=== PATIENT | male | born 1945 | race Caucasian/White ===

== ENCOUNTER 2017-11-17 17:29 | Emergency (ER) | payer MEDICARE ==
--- NOTE | 2017-11-17 18:05 | RAD ---
CHEST ONE VIEW: 11/17/17 HISTORY: 72-year-old male with cough and congestion for one week. Increased bronchovascular markings are noted bilaterally. Heart size is within normal limits. No conf luent pneumonia, overt edema or pleural effusion. IMPRESSION: Nonspecific increased bronchovascular markings in the hilar regions bilaterally. Atherosclerosis of t he aorta with ectasia. Old granulomatous disease. No evidence for confluent pneumonia or other acute process. POS: [facility]
== END 2017-11-17 18:35 | disposition home or self-care (01) ==
LOC: ERS 17:29
DX: J11.1 Influenza due to unidentified influenza virus with other respiratory manifestations (principal); Z79.899 Other long term (current) drug therapy
CPT/HCPCS: 71010

== ENCOUNTER 2017-11-26 07:29 | Inpatient (IN) | payer MEDICARE ==
[2017-11-26] MEDS ORDERED: methylPREDNISolone Sod Succ/PF 125 MG/2 ML VIAL ONE (07:51)
[2017-11-26] MEDS ORDERED: Water For Inject, Bacteriostat 30 ML ONE (07:51)
[2017-11-26 07:59] LABS: #Eosinphils 0.1 thou/uL (0.0-0.7); #Lymphocytes 2.2 thou/uL (1.20-3.40); #Monocytes 0.8 thou/uL (0.11-0.59); #Neutrophils 10.6 thou/uL (1.40-6.50); %Eosinophils 0.5 % (0.0-10.0); %Lymphocytes 15.8 % (21.0-51.0); %Monocytes 5.8 % (0.0-10.0); %Neutrophils 77.8 % (42.0-75.0); Hemoglobin 15.4 g/dL (14.0-18.0); Mean Corpuscular HGB CONC 34.4 g/dL (32.0-36.0); Mean Corpuscular Hemoglobin 30.7 pg (27.0-31.0); Mean Corpuscular Volume 89.3 fl (80.0-94.0); Mean Platelet Volume 6.9 fL (7.4-10.4); Platelet Count 229 thou/uL (130-400); Red Blood Cell (RBC) Count 5.02 mill/uL (4.70-6.10); White Blood Cell (WBC) Count 13.6 thou/uL (4.8-10.8)
[2017-11-26 08:07] LABS: D-Dimer Test 1.73 *mcg/mL (0.27-0.43)
[2017-11-26 08:23] LABS: ALT (SGPT) 12 U/L (8-55); AST (SGOT) 12 U/L (5-34); Albumin 4.2 g/dL (3.4-4.8); Alkaline Phosphatase 76 U/L (40-150); Anion Gap 13 mmol/L (10-20); BUN (Urea Nitrogen) 17 mg/dL (8.4-25.7); Bilirubin, Total 2.3 mg/dL (0.2-1.2); CK (CPK) 39 U/L (30-200); Calc. Creatinine Clearance 0 mL/min (70-130); Calcium 9.8 mg/dL (7.8-10.44); Carbon Dioxide 27 mmol/L (23-31); Chloride 95 mmol/L (98-107); Estimated GFR-MDRD 50; Globulin 3.4 g/dL (2.4-3.5); Glucose 174 mg/dL (83-110); Potassium 4.3 mmol/L (3.5-5.1); Protein, Total 7.6 g/dL (5.8-8.1); Sodium 131 mmol/L (136-145)
[2017-11-26 08:28] LABS: CKMB 0.5 ng/mL (0-6.6); Troponin I Less than 0.010 ng/mL (< 0.028)
--- NOTE | 2017-11-26 08:41 | RAD ---
RADIOGRAPH CHEST 1 VIEW: Date: 11/26/17. Time: 7:48 a.m. HISTORY: A 72-year-old male with dyspnea. COMPARISON: 11/17/17. FINDINGS: There is a new finding of airspace density at the medial aspect of the base of the right lower lobe. This is favored to represent atelectasis, and somewhat less likely to be pneumonia, although that re richa a possibility. Elsewhere, no other airspace density is visualized. Ectasia of thoracic aorta. Cardiac size at the upper limits of normal. No pulmonary edema or pneumothorax. Lateral costophre noe angles are sharp. IMPRESSION: 1. New small airspace density at the medial, infrahilar base of the right lower lobe: atelectasis ve rsus pneumonia. 2. Recommend short interval followup with PA and lateral views. HARSHA [] POS: [facility]
[2017-11-26 09:31] LABS: INR-International Normal Ratio 1.1; Prothrombin Time 14.3 SEC (12.0-14.7)
[2017-11-26] MEDS ORDERED: Enoxaparin Sodium 100 MG/ML SYRINGE ONE (09:57)
--- NOTE | 2017-11-26 10:07 | CT ---
CTA THORAX WITH CONTRAST: (Computed Tomographic Angiography, chest(noncoronary) with contrast material, and image postprocessin g) (PE protocol) DATE: 11/26/17. TIME: 8:56 a.m. TECHNIQUE: Isovue. HISTORY: A 72-year-old male with cough, dyspnea, right-sided chest pain, and elevated D-dimer. Dr. Ceron reported the positive finding of pulmonary embolism to Dr. Ying at 9:14 a.m. on 11/26/17. TECHNIQUE: IV injection of iodinated contrast. Scan acquisition timing attempted to coincide with iodinated contrast bolus reaching maximal density in pulmonary arteries. 3D MIP reconstructions. FINDINGS: There is clot filling and expanding the lumen of posterobasilar segment right lower lobe pulmonary ar jennifer branches and medial basilar segment right lower lobe pulmonary artery branches. There is also c lot in the posterior segment right upper lobe pulmonary artery branch. There is no clot identified i n the left pulmonary artery branches, bilateral main left and right pulmonary arteries, or the pulmon ic trunk. There is mild ectasia and tortuosity, but no aneurysm or dissection, of the thoracic aorta . Calcification or stent is present within the LAD. Borderline cardiomegaly. There are ground-glass densities at the posterobasilar portion of the right lower lobe, which could r epresent pulmonary ischemia or early infarction. There is adjacent rind of subsegmental atelectasis abutting the right posterior pleural surface. Little or no right pleural effusion. No left pleural effusion. No pulmonary edema. No mediastinal or hilar lymphadenopathy. There is a calcified gallst one. Low hepatic attenuation. IMPRESSION: 1. Positive for right-sided pulmonary thromboembolism. 2. Posterobasilar right lower lobe pulmonary ischemia or infarction. 3. Coronary atherosclerotic disease. 4. Cholelithiasis. CODE CR jn[] POS: [facility]
[2017-11-26] MEDS ORDERED: Azithromycin 500 MG in Sodium Chloride 0.9% 250 ML 250 ML IVPB SCH (10:15)
[2017-11-26] MEDS ORDERED: ISOVUE-370 76%-LOCM 1 ML ONE (11:16)
[2017-11-26] MEDS ORDERED: Acetaminophen 325 MG TAB PO PRN ×2 (14:45→17:13)
[2017-11-26] MEDS ORDERED: Ondansetron ODT 4 MG TAB SL PRN (14:45)
[2017-11-26] MEDS ORDERED: Ondansetron HCl/PF 4 MG/2 ML Vial IVP PRN ×2 (14:45→17:13)
[2017-11-26 16:33] VITALS: BMI 30.2
[2017-11-26] MEDS ORDERED: Ondansetron ODT 4 MG TAB PO PRN (17:13)
[2017-11-26] MEDS ORDERED: Bisacodyl 5 MG TAB PO PRN (17:13)
[2017-11-26] MEDS ORDERED: Guaifenesin DM 100-10/5 ML UDCUP PO PRN (17:13)
[2017-11-26] MEDS ORDERED: Acetaminophen 650 MG Suppository PR PRN (17:13)
[2017-11-26] MEDS ORDERED: cefTRIAXone\\ROCEPHIN 1 GM in Sodium Chloride 0.9% 100 ML IVPB SCH (17:15)
[2017-11-26] MEDS: Sodium Chloride 0.9% 1,000 ML IV SCH (18:08)
--- NOTE | 2017-11-26 19:17 | HP ---
PRIMARY CARE PHYSICIAN: None. CHIEF COMPLAINT: Cough and chest pain. HISTORY OF PRESENT ILLNESS: This is a 72-year-old white male without significant past medical histor y who about 3 weeks ago developed low grade fevers never above 100, significant runny nose, sore thro at, some chills, cough and congestion. He and his were both seen in Urgent Care and diagnosed w ith most likely influenza. He was given a course of azithromycin and also a total course of Tamiflu. The patient states that the congestion, drainage, sore throat and fevers all resolved, but he had s ome persistent cough and then for the last few days, the cough has been getting worse and starting ye , he developed significant right-sided chest and abdominal pain with whenever he would try and cough so much so that at one point he could not take a deep breath or cough at all because the pain was so severe. Because of the severity of the pain and trouble breathing, he came into the emergency room. In the emergency room, he was found to have an infiltrate in his right lower lobe concerning for atelectasis versus pneumonia. He had an elevated D-dimer, so a CT angiogram was done and this sh owed a right-sided pulmonary embolism along with some ground glass densities in the posterior basilar portion of the right lower lobe concerning for ischemia or infarction. He was also noted to have so me calcifications of the coronary artery disease, specifically in the LAD and some borderline cardiom egaly as well as some cholelithiasis. The patient was given Lovenox along with Rocephin and azithrom ycin in the emergency room and was admitted to the hospital. PAST MEDICAL HISTORY: None. PAST SURGICAL HISTORY: 1. Left knee cartilage repair. 2. Appendectomy. SOCIAL HISTORY: Patient drinks a glass of red wine occasionally. 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 No illicit d rug use. He is and lives with his . FAMILY HISTORY: Diabetes. ALLERGIES: No known drug allergies. MEDICATIONS: No regular medications. REVIEW OF SYSTEMS: Constitutional: See HPI. HEENT: He had some redness and drainage originally, t his has since resolved. No eye pain or blurred vision. ENT: See HPI. All symptoms resolved. Card iovascular: No anterior chest pain, no palpitations or racing heart. No lower extremity edema. Pul monary: See HPI. The cough is productive of clear sputum. Gastrointestinal: No abdominal pain, no nausea or vomiting, no diarrhea or constipation. Genitourinary: No dysuria or hematuria. Musculos keletal: No significant muscle aches or joint pains. Skin: No rashes or other lesions. Neurologic : No numbness, tingling or focal weakness. PHYSICAL EXAMINATION: VITAL SIGNS: Blood pressure 139/85, pulse 71, respirations 16, O2 sat 95% on room air, temperature 9 8.2. GENERAL: This is a well-developed, obese white male in no apparent distress. HEENT: Pupils equal, round, and reactive to light. Oropharynx clear without lesions, erythema or ex udate. NECK: Supple. No lymphadenopathy, no thyroid nodules or enlargement, no JVD. HEART: Regular rate and rhythm, no murmurs, rubs or gallops. LUNGS: Clear to auscultation bilaterally, no wheezes, crackles or rhonchi. No chest wall tenderness . ABDOMEN: Soft, nontender to palpation, normoactive bowel sounds, no hepatosplenomegaly or other mass es. EXTREMITIES: No clubbing, cyanosis or edema. He has no pain to palpation of the calves bilaterally. SKIN: No rashes or other lesions noted. NEUROLOGIC: Strength 5/5 in all 4 extremities. No facial droop. PSYCHIATRIC: Alert, oriented x3, normal mood and affect. LABORATORY DATA: CBC with white blood cell count 13.6 with a neutrophil predominance of 77.8, remain darlene is normal. Coagulation profile shows only an elevated D-dimer, PT and INR normal. Complete meta bolic panel notable for sodium a little low at 131, chloride of 95, creatinine of 1.38, glucose of 17 4 and total bilirubin mildly elevated at 2.3, rest of the liver functions are normal. Cardiac marker set negative x1. Brain natriuretic peptide is normal. Chest x-ray and CT results as per HPI. ASSESSMENT PLAN: 1. Right-sided pulmonary embolism with ischemia or infarction of the right posterior aspect of the i nferior lobe. The patient has received Lovenox in the emergency room. We will continue 1 mg per kg q.12 hours. We will also start him on Coumadin as he does not have any insurance to help pay for [employer]. We will consult Dr. Silva for assistance and management of this patient. 2. Questionable pneumonia. Patient has what appears to be more infarction on the CT scan. He does have a mildly elevated white blood cell count. He has already finished a course of azithromycin ana rosa ier in illness, so we will hold off on further azithromycin at this time, we will continue the Roceph in for now until Dr. Silva sees the patient. 3. Renal insufficiency, uncertain if this is acute or chronic. As we do not have any previous labs on him, we will give him gentle hydration and recheck in the morning. 4. Gastrointestinal prophylaxis. Put patient on Pepcid while he is in the hospital. 5. Deep venous thrombosis prophylaxis. Patient is being put on Lovenox. 6. Code status. I did discuss this with the patient. He is a FULL CODE. Should he be incapacitate d, his , Sascha Matthew, would be his medical decision maker.
[2017-11-26] MEDS: Docusate 100 MG CAP PO SCH (20:36)
[2017-11-26] MEDS: Enoxaparin Sodium 100 MG/ML SYRINGE SC SCH (20:37)
--- NOTE | 2017-11-26 20:49 | ULT ---
BILATERAL LOWER EXTREMITY DOPPLER VENOUS ULTRASOUND: Indication: History of PE. Concern for DVT. Technique: Linares scale, color Doppler, and vascular duplex with spectral analysis was performed of the deep venou s structures of both lower extremities. The common femoral vein, superficial femoral vein, popliteal vein, posterior tibial vein, proximal greater saphenous, and proximal profunda veins were assessed bi laterally. FINDINGS: Normal compression, flow, and augmentation seen within the deep venous structures of both lower extre mities. IMPRESSION: No evidence of DVT within both lower extremities. POS: [facility]
--- NOTE | 2017-11-27 00:47 | CON ---
DATE OF SERVICE: 11/26/2017 SERVICE: Pulmonary Medicine. REASON FOR CONSULTATION: Pulmonary embolism. HISTORY OF PRESENT ILLNESS: The patient is a 72-year-old white male. He follows at the OR, but they told him since he had no medical issues that he did not need to follow up with them anymore. As suc h, he only goes back to them on a p.r.n. basis. Either way, he was in his usual state of health unti l a week ago when he had an upper respiratory tract infection. He is recovering from this nicely whe n he started having onset of pleuritic chest discomfort, and some difficulty with breathing. He pres ented to the emergency department and after initial diagnostic evaluation revealed an elevated D-dime r, CT scan was prompted resulting in evidence for a pulmonary embolism. There is also some ground-gl ass changes in the right basilar lung region. There is a very miniscule infiltrate. They suggested that this could represent an infarction versus an actual infection. Since being in the hospital, he was put on some blood thinners. He had resolution in his previously noted symptoms. Essentially, he feels that now that we understand what is going on, he is fairly comfortable with this process. He previously stated that he did not have any insurance. It is true that he has Medicare without the nm dication supplement. That being said, most of these medications should be able to be filled through the OR system. He denies any current fevers, chills, nausea, or vomiting. He only has chest discomf ort with deep breath or cough. PAST MEDICAL HISTORY: None. PAST SURGICAL HISTORY: 1. Left knee arthroscopy. 2. Appendectomy. SOCIAL HISTORY: He drinks wine. 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 He denies any illicit drugs a nd is currently . He has no exposure to chemicals, dust, asbestos, or tuberculosis. FAMILY HISTORY: Noncontributory ALLERGIES: No known drug allergies. MEDICATIONS: Inpatient medications were reviewed. REVIEW OF SYSTEMS: General, head, ears, eyes, nose, throat, cardiovascular, respiratory, GI, , mus culoskeletal, neurologic and skin is negative except as mentioned in the HPI. PHYSICAL EXAMINATION: VITAL SIGNS: Afebrile, pulse 79, blood pressure 123/69, respirations 18, saturation 98% on room air. GENERAL: The patient is awake and alert, in no apparent distress. LUNGS: Excellent air entry with no prolonged expiratory phase. No wheezing, rhonchi, or crackles ar e appreciated. HEART: Normal rate and regular. ABDOMEN: Soft, nontender, nondistended. Bowel sounds are positive. MUSCULOSKELETAL: No cyanosis or clubbing. No pitting in the bilateral lower extremities. NEUROLOGIC: Grossly nonfocal. LABORATORY DATA: Sodium is 131. Creatinine is 1.38. Basic metabolic profile and liver function ang dies are otherwise unremarkable. BNP is negative. Troponin is negative x1. INR is 1.1. WBC is 13. 6. CBC is otherwise unremarkable. IMAGIN. Ultrasound of bilateral lower extremities demonstrates no evidence of a DVT. 2. CTA of the chest demonstrates some ground-glass changes in the right basilar region likely sugges ting some degree of atelectasis. There is a slightly more dense miniscule infiltrate. It is not kely ar whether or not this represents infarction versus infectious process. I favor the prior. Otherwis e, there is no significant pleural parenchymal abnormality appreciated. 3. Chest x-ray demonstrates small air space density in the medial infrahilar base of the right lung. ASSESSMENT: 1. Acute pulmonary embolism. 2. Recent upper respiratory tract infection. 3. Pulmonary infarct, small. PLAN: My suspicion is that this thing represents a pulmonary infarction. He already completed a cou rse of azithromycin in the outpatient setting. As such, I agree with not administrating this medicat ion. I will switch him over to p.o. Omnicef and he can complete a 5-day course of this antibiotic di rected at community-acquired pathogens. After discussing a direct oral anticoagulant versus Coumadin , the patient would appreciate us making an effort on getting him on a direct oral anticoagulant. I have asked him to [facility] to determine which medication is on formulary. I will put a Social Work consult in to see if they can help us with any prior authorization that may be necessary to get that medication filled through that system. I can certainly get him a starter kit if necessa ry of the Xarelto. I will continue to follow up for the time being, but if we are able to get him on a direct oral anticoagulant, he is stable for discharge from the hospital. This will need to be con tinued for a total duration of 6 months. I have talked with him briefly about the risks and benefits that go along with taking a blood thinner. He understands that this puts him at increased risk of b leeding. He also appreciates that if that bleed occurs inside of the brain, that we will have no way to reliably discontinue or reverse this medication.
[2017-11-27] MEDS: Sodium Chloride 0.9% 1,000 ML IV SCH ×2 (05:10→20:50)
[2017-11-27 05:48] LABS: #Lymphocytes 1.4 thou/uL (1.20-3.40); #Neutrophils 11.9 thou/uL (1.40-6.50); %Eosinophils 0.1 % (0.0-10.0); %Lymphocytes 9.9 % (21.0-51.0); %Monocytes 6.9 % (0.0-10.0); %Neutrophils 83.1 % (42.0-75.0); Hemoglobin 13.6 g/dL (14.0-18.0); Mean Corpuscular HGB CONC 33.9 g/dL (32.0-36.0); Mean Corpuscular Hemoglobin 30.2 pg (27.0-31.0); Mean Platelet Volume 7.3 fL (7.4-10.4); Platelet Count 208 thou/uL (130-400); RBC Distribution Width 11.9 % (11.5-14.5); Red Blood Cell (RBC) Count 4.49 mill/uL (4.70-6.10); White Blood Cell (WBC) Count 14.4 thou/uL (4.8-10.8)
[2017-11-27 05:54] LABS: INR-International Normal Ratio 1.2; Prothrombin Time 15.7 SEC (12.0-14.7)
[2017-11-27 06:07] LABS: Anion Gap 11 mmol/L (10-20); BUN (Urea Nitrogen) 18 mg/dL (8.4-25.7); Calc. Creatinine Clearance 81 mL/min (70-130); Calcium 9.5 mg/dL (7.8-10.44); Carbon Dioxide 24 mmol/L (23-31); Chloride 104 mmol/L (98-107); Estimated GFR-MDRD 65; Glucose 133 mg/dL (83-110); Potassium 4.2 mmol/L (3.5-5.1); Sodium 135 mmol/L (136-145)
[2017-11-27] MEDS ORDERED: FLU VACC TS2017-18 (>65YR) 0.5 ML SYRINGE IM ONE (09:00)
[2017-11-27] MEDS ORDERED: Enoxaparin Sodium 40 MG/0.4 ML SYRINGE SC SCH (09:00)
[2017-11-27] MEDS ORDERED: cefTRIAXone\\ROCEPHIN 1 GM, Syringe 0.4 ML in Sterile Water 9.6 ML SLOW IVP SCH (10:00)
--- NOTE | 2017-11-27 10:07 | PDOC.PN ---
- Subjective Encounter Start Date: 11/27/17 Encounter Start Time: 14:30 Subjective: Patient reports cough worse but chest pain much better. Breathing -: easily. No leg pain/swelling. - Objective Resuscitation Status: Resuscitation Status FULL:Full Resuscitation MAR Reviewed: Yes Vital Signs & Weight: Vital Signs (12 hours) Temp Pulse Resp BP Pulse Ox 11/27/17 07:15 98.8 F 60 16 130/73 96 11/27/17 04:00 98.4 F 74 18 121/70 96 11/27/17 00:14 98.6 F 81 16 119/78 95 Weight Weight 215 lb 4.8 oz I&O: 11/26/17 11/27/17 11/28/17 06:59 06:59 06:59 Intake Total 1444 Balance 1444 Result Diagrams: 11/27/17 05:26 11/27/17 05:26 Phys Exam - Physical Examination Constitutional: NAD HEENT: moist MMs Respiratory: no wheezing, no rales, no rhonchi, clear to auscultation bilateral Cardiovascular: RRR, no significant murmur Gastrointestinal: soft, positive bowel sounds Musculoskeletal: no edema Neurological: non-focal, moves all 4 limbs Psychiatric: normal affect, A&O x 3 Dx/Plan (1) Pulmonary embolism and infarction Code(s): I26.99 - OTHER PULMONARY EMBOLISM WITHOUT ACUTE COR PULMONALE Status : Acute (2) Pneumonia Code(s): J18.9 - PNEUMONIA, UNSPECIFIED ORGANISM Status: Acute Comment: possible, more likely infarct on x-ray, will change to oral Omnicef and complete 5 days of abx as per Dr. Silva's recommendations. - Plan cont current plan of care, continue antibiotics, DVT proph w/lovenox Trying to arrange [facility] to cover newer anticoagulant * . - Discharge Day Encounter end time: 15:00
[2017-11-27] MEDS: Docusate 100 MG CAP PO SCH ×2 (10:12→20:49)
[2017-11-27] MEDS: Enoxaparin Sodium 100 MG/ML SYRINGE SC SCH ×2 (10:12→20:49)
[2017-11-27] MEDS ORDERED: Warfarin Sodium 5 MG TAB PO SCH (17:00)
--- NOTE | 2017-11-27 20:25 | PRG ---
DATE OF SERVICE: 11/27/2017 SERVICE: Pulmonary Medicine. INTERVAL HISTORY: The patient is doing great from a respiratory standpoint. He denies any current f david, chills, nausea or vomiting. This morning, somebody told him that they would look into whether or not the [facility] would cover his medication. Ultimately that did not happen today. As such, the patie nathan still remains in the hospital. He is going to call the [facility] first thing in the morning either way. I have also talked to case management directly, and they are going to look into what medication the VA will authorize in the outpatient setting. He currently denies any shortness of breath or chest di scomfort. PHYSICAL EXAMINATION: VITAL SIGNS: Afebrile, pulse 73, blood pressure 174/97, respirations 16, saturation 98% on room air. GENERAL: Patient is awake, alert, in no apparent distress. LUNGS: Decent air entry. No prolonged expiratory phase, wheezing, rhonchi or crackles. HEART: Normal rate, regular. ABDOMEN: Soft, nontender, nondistended. Bowel sounds positive. MUSCULOSKELETAL: No cyanosis or clubbing. No pitting in the bilateral lower extremities. NEUROLOGIC: Grossly nonfocal. LABORATORY DATA: WBC 14.4, hemoglobin 13.6, platelets 208,000. INR 1.2. Basic metabolic profile is otherwise unremarkable. Troponin is negative, BNP is unremarkable. ASSESSMENT: 1. Acute pulmonary embolism. 2. Upper respiratory tract infection. 3. Pulmonary infarct, possible. PLAN: The patient is ready for discharge as soon as we can set him up with the direct oral anticoagu lant in the outpatient setting. This requires for us to figure out what medication is on the formula ry and to verify that the patient can get this medication filled once [facility]. If he ca nnot go home on a direct oral anticoagulant, he will remain in this location until he is therapeutic on Coumadin and he will have to have close followup with [facility]. At this point, he has no f urther requirements for inpatient Pulmonary Critical Care opinion. As such, we will sign off. Pleas e call with additional questions or concerns.
[2017-11-27] MEDS: Cefdinir 300 MG CAP PO SCH (20:49)
[2017-11-28 05:26] LABS: INR-International Normal Ratio 1.2; Prothrombin Time 15.1 SEC (12.0-14.7)
--- NOTE | 2017-11-28 08:19 | PDOC.PN ---
- Subjective Encounter Start Date: 11/28/17 Encounter Start Time: 09:00 Subjective: Patient feeling much better. No more chest pain. Minimal cough -: not productive. - Objective Resuscitation Status: Resuscitation Status FULL:Full Resuscitation MAR Reviewed: Yes Vital Signs & Weight: Vital Signs (12 hours) Temp Pulse Resp BP Pulse Ox 11/28/17 07:53 98.3 F 51 L 18 160/85 H 97 11/28/17 04:14 98.4 F 65 20 166/87 H 98 11/28/17 00:23 99.4 F 68 16 168/73 H 94 L 11/27/17 20:49 99.4 F 68 16 94 L Weight Weight 6.981 oz I&O: 11/27/17 11/28/17 11/29/17 06:59 06:59 06:59 Intake Total 1444 3238 Balance 1444 3238 Result Diagrams: 11/27/17 05:26 11/27/17 05:26 Phys Exam - Physical Examination Constitutional: NAD HEENT: moist MMs Respiratory: no wheezing, no rales, no rhonchi, clear to auscultation bilateral Cardiovascular: RRR, no significant murmur Gastrointestinal: soft, positive bowel sounds Neurological: non-focal, moves all 4 limbs Psychiatric: normal affect, A&O x 3 Dx/Plan (1) Pulmonary embolism and infarction Code(s): I26.99 - OTHER PULMONARY EMBOLISM WITHOUT ACUTE COR PULMONALE Status : Acute (2) Pneumonia Code(s): J18.9 - PNEUMONIA, UNSPECIFIED ORGANISM Status: Acute Comment: possible, more likely infarct on x-ray, will change to oral Omnicef and complete 5 days of abx as per Dr. Silva's recommendations. - Plan cont current plan of care, DVT proph w/lovenox Xarelto reportedly covered by [facility]. CM to contact local office and will send -: over Rx for Xarelto 20mg daily. Coupon given for -: pack of 15mg BID for 21 days. Will d/c Coumadin. -: D/C home and f/u [facility] 1 week. * . - Discharge Day Encounter end time: 09:30
[2017-11-28] MEDS: Docusate 100 MG CAP PO SCH (08:57)
[2017-11-28] MEDS: Enoxaparin Sodium 100 MG/ML SYRINGE SC SCH (08:57)
[2017-11-28] MEDS: Cefdinir 300 MG CAP PO SCH (08:57)
[2017-11-28] MEDS: Sodium Chloride 0.9% 1,000 ML IV SCH (08:57)
[2017-11-28] MEDS ORDERED: FLU VACC TS2017-18 (>65YR) 0.5 ML SYRINGE IM ONE (09:00)
[2017-11-28] MEDS ORDERED: Rivaroxaban 15 MG TAB PO SCH ×2 (11:15→21:00)
[2017-11-28 15:24] VITALS: BP 164/91; TEMP 98.8
--- NOTE | 2017-11-28 16:09 | PRG ---
DATE OF SERVICE: 11/28/2017 SERVICE: Pulmonary Medicine. INTERVAL HISTORY: The patient is doing great from a respiratory perspective. We were able to get hi m some direct oral anticoagulant. He already has an appointment scheduled with the [facility] later. Otherw ise, there has been no interval change to his condition. PHYSICAL EXAMINATION: VITAL SIGNS: Afebrile, pulse 81, respirations 15, saturation 97% on room air. GENERAL: The patient is awake, alert, in no apparent distress. LUNGS: Excellent air entry with no prolonged expiratory phase, wheezing, rhonchi, or crackles. HEART: Normal rate, regular. ABDOMEN: Soft, nontender, nondistended, bowel sounds positive. MUSCULOSKELETAL: No cyanosis or clubbing. There is no pitting in the bilateral lower extremities. NEUROLOGIC: Grossly nonfocal. ASSESSMENT: 1. Acute pulmonary embolism. 2. Pulmonary infarction. 3. Community-acquired pneumonia, unlikely. PLAN: He can complete his antibiotics for a total duration of 5 days. At this point, he is stable f or transition out of the hospital, particularly if he has good direct oral anticoagulant, and a carlee wall appointment with the OR. I can certainly follow him in the outpatient setting. If he wants to f jonas with me, I have told him he can schedule an appointment to see me in roughly 3 months or sooner if he has any questions or concerns. At this point, he has no further requirements for inpatient pu lmonary critical care opinion. As such, I will sign off.
--- NOTE | 2017-11-28 23:30 | DIS ---
PRIMARY CARE PHYSICIAN: Venancio Tidwell PA-C, previously at the [facility] years ago. DIAGNOSES ON ADMISSION: 1. Right-sided pulmonary embolism with a possible infarction. 2. Questionable pneumonia. 3. Renal insufficiency. DIAGNOSES AT DISCHARGE: 1. Pulmonary embolism and infarction, improved, discharged on Xarelto. 2. Possible pneumonia. 3. Renal failure, resolved. PROCEDURES: CTA of the chest showing positive right-sided pulmonary thromboembolism with posterior b asilar right lower lobe pulmonary infarction or ischemia. CONSULTATIONS: Pulmonology, Dr. Silva. SUMMARY OF HOSPITAL COURSE: This is a 72-year-old white male without significant past medical histor y, who developed low grade fever along with URI symptoms about 3 weeks before admission. Diagnosis o f likely influenza and did take a course of Tamiflu. The patient reported that he had cough, getting worse at the day before admission. He developed severe right-sided chest pain and abdominal pain wi th cough or deep breaths only, so he came into the emergency room. He was found to have an infiltrat e in his right lower lobe on chest x-ray and elevated D-dimer spurred a CT scan, which revealed the a carline results. The patient was started on Lovenox and admitted to the hospital. Dr. Silva was cons ulted and speaking with the patient, the patient preferred to use one of the newer direct anticoagula nts. Social Work consulted the [facility], and they stated that they do cover Xarelto. The patient was give n a coupon for free first month of Xarelto and then is to [facility] to o rder further medication. On the day of discharge, the patient was doing well without any pain and mi nimal cough that was no longer productive and he was discharged home. DISCHARGE MANAGEMENT: Discharged home. MEDICATIONS: 1. Xarelto 15 mg twice a day for 21 days and he switched to 20 mg daily, he was given a coupon for t he first month. He was also given a prescription of the 20 mg per day to take with him to the [facility] on his appointment in next week. 2. Cefdinir 300 mg twice a day for 3 more days for a total of 5 days of antibiotics. ACTIVITIES: As tolerated. DIET: Regular diet. FOLLOWUP: [facility].
--- NOTE | 2017-12-01 15:33 | EKG ---
Test Reason : Blood Pressure : / mmHG Vent. Rate : 073 BPM Atrial Rate : 073 BPM P-R Int : 152 ms QRS Dur : 086 ms QT Int : 386 ms P-R-T Axes : 059 020 027 degrees QTc Int : 425 ms Normal sinus rhythm Normal ECG Confirmed by VIVIANA SCHWARTZ ([id number]), senior editor HARDIK ESCOBAR ([id number]) on 12/01/2017 3:32:59 PM Referred By: Confirmed By:VIVIANA SCHWARTZ
== END 2017-11-28 15:33 | disposition home or self-care (01) | DRG 175 ==
LOC: ERS 07:29 → ERHOLD 09:52 → 2SE 14:19
PROVIDERS: ADMIT Emergency Medicine; ATTEND Emergency Medicine
DX: I26.99 Other pulmonary embolism without acute cor pulmonale (principal); J18.9 Pneumonia, unspecified organism; I10 Essential (primary) hypertension; I25.10 Atherosclerotic heart disease of native coronary artery without angina pectoris; J06.9 Acute upper respiratory infection, unspecified
CPT/HCPCS: 36415; 71045; 71275; 80048; 80053; 82550; 82553; 83880; 84484; 85025; 85379; 85610; 85730; 90471; 90682; 90732; 93005; 93970; 94760; 96365; 96372; 96375; A4216; G0008; G0009; J0456; J0696; J1650; J2930; J7050; J7620; Q2036

== ENCOUNTER 2021-10-24 09:17 | Inpatient (IN) | payer MEDICARE, OTHER ==
[2021-10-24] MEDS ORDERED: Iopamidol 370 76% 100 ML VIAL ONE (09:24)
[2021-10-24] MEDS ORDERED: Rocuronium Bromide 10 MG/ML (10ML VIAL) ONE ×2 (09:26→10:58)
[2021-10-24 09:34] LABS: #Eosinphils 0.1 thou/uL (0.0-0.7); #Lymphocytes 1.4 thou/uL (1.20-3.40); #Monocytes 0.2 thou/uL (0.11-0.59); #Neutrophils 4.6 thou/uL (1.40-6.50); %Basophils 0.2 % (0.0-1.0); %Eosinophils 1.1 % (0.0-10.0); %Lymphocytes 22.1 % (21.0-51.0); %Neutrophils 73.6 % (42.0-75.0); Hemoglobin 14.3 g/dL (14.0-18.0); Mean Corpuscular HGB CONC 34.7 g/dL (32.0-36.0); Mean Corpuscular Hemoglobin 33.4 pg (27.0-31.0); Mean Corpuscular Volume 96.4 fL (78.0-98.0); Platelet Count 176 thou/uL (130-400); RBC Distribution Width 13.5 % (11.5-14.5); Red Blood Cell (RBC) Count 4.29 mill/uL (4.70-6.10); White Blood Cell (WBC) Count 6.2 thou/uL (4.8-10.8)
[2021-10-24 09:43] LABS: INR-International Normal Ratio 1.1; Prothrombin Time 14.1 sec (12.0-14.7)
[2021-10-24] MEDS ORDERED: Iopamidol-370 76% 500 ML 1 ML ONE (09:44)
[2021-10-24 09:51] LABS: ALT (SGPT) 16 U/L (8-55); AST (SGOT) 15 U/L (5-34); Alkaline Phosphatase 75 U/L (40-110); Anion Gap 12 mmol/L (10-20); BUN (Urea Nitrogen) 15 mg/dL (8.4-25.7); Bilirubin, Total 1.9 mg/dL (0.2-1.2); Calc. Creatinine Clearance 0 mL/min (70-130); Calcium 9.2 mg/dL (7.8-10.44); Carbon Dioxide 24 mmol/L (23-31); Chloride 107 mmol/L (98-107); Glucose 190 mg/dL (83-110); Potassium 4.3 mmol/L (3.5-5.1); Sodium 139 mmol/L (136-145)
[2021-10-24] MEDS ORDERED: Heparin 10,000 UNITS/ 10 ML VIAL ONE (10:02)
[2021-10-24] MEDS ORDERED: Labetalol HCl 100 MG/20 ML VIAL ONE (10:04)
[2021-10-24] MEDS ORDERED: niCARdipine 20MG In NaCl 20 MG/200 ML BAG ONE (10:07)
[2021-10-24] MEDS ORDERED: Midazolam HCl 2 mg/2 ml Vial ONE (10:26)
[2021-10-24 10:29] LABS: Actual Bicarbonate (HCO3a) 21.5 mEq/L (22-28); Analyzer IN Cardio ER; Base Excess (BEa) -2.6 mEq/L (-2.0 to +3.0); CO2 Tension 35.5 mmHg (35.0-45.0); Calcium, Ionized (arterial) 1.15 mmol/L (1.12-1.30); Carboxyhemoglobin (COHb) 0.2 gm% (0.0-3.0); Hemoglobin (Hb) 14.9 g/dL (14.0-18.0); O2 Tension (PaO2), arterial 86.4 mmHg (> 70.0); Potassium - ABG Lab 3.91 mmol/L (3.70-5.30)
[2021-10-24 10:33] LABS: Puncture Site RRA
[2021-10-24 10:34] LABS: ALV-art Gradient 225.725 mmHg (0-20)
[2021-10-24] MEDS ORDERED: PHENYLEPHRINE-NS 100 MCG/ML 10 ML SYRINGE ONE (10:58)
[2021-10-24] MEDS ORDERED: hydrALAZINE 20 MG/ML VIAL SLOW IVP PRN (11:45)
[2021-10-24] MEDS ORDERED: Labetalol HCl 100 MG/20 ML VIAL SLOW IVP PRN (11:45)
[2021-10-24] MEDS ORDERED: Mag-Al 1200 mg/1200 mg/30 ML UDCUP PO PRN (11:45)
[2021-10-24] MEDS ORDERED: Communication Order-Pharmacy FS ONE (11:45)
[2021-10-24] MEDS ORDERED: niCARdipine 25 MG in Sodium Chloride 0.9% 250 ML 250 ML IVPB PRN (11:45)
[2021-10-24 12:44] LABS: #Lymphocytes 0.9 thou/uL (1.20-3.40); #Monocytes 0.3 thou/uL (0.11-0.59); #Neutrophils 6.9 thou/uL (1.40-6.50); %Eosinophils 0.2 % (0.0-10.0); %Lymphocytes 10.6 % (21.0-51.0); %Monocytes 4.2 % (0.0-10.0); Mean Corpuscular HGB CONC 35.7 g/dL (32.0-36.0); Mean Corpuscular Hemoglobin 34.5 pg (27.0-31.0); Mean Corpuscular Volume 96.6 fL (78.0-98.0); Mean Platelet Volume 7.1 fL (7.4-10.4); Platelet Count 171 thou/uL (130-400); RBC Distribution Width 13.5 % (11.5-14.5); Red Blood Cell (RBC) Count 4.06 mill/uL (4.70-6.10); White Blood Cell (WBC) Count 8.1 thou/uL (4.8-10.8)
[2021-10-24 13:00] LABS: Anion Gap 10 mmol/L (10-20); BUN (Urea Nitrogen) 13 mg/dL (8.4-25.7); Calc. Creatinine Clearance 0 mL/min (70-130); Calcium 8.8 mg/dL (7.8-10.44); Carbon Dioxide 23 mmol/L (23-31); Chloride 110 mmol/L (98-107); Glucose 115 mg/dL (83-110); Potassium 3.9 mmol/L (3.5-5.1); Sodium 139 mmol/L (136-145)
[2021-10-24] MEDS ORDERED: Electrolyte Replacement Protocol 1 EACH FS ONE (13:15)
[2021-10-24] MEDS ORDERED: Ventilator Sedation Protocol 1 EACH FS ONE (13:15)
[2021-10-24] MEDS ORDERED: Fentanyl BOLUS 250 ML IVPB PRN (13:30)
[2021-10-24] MEDS ORDERED: Sodium Chloride 0.9% 1,000 ML IV SCH (13:30)
[2021-10-24] MEDS ORDERED: Morphine 2 MG/ML VIAL SLOW IVP PRN (13:30)
[2021-10-24] MEDS ORDERED: Fentanyl CADD 100 ML IV SCH ×2 (13:30→16:15)
[2021-10-24] MEDS ORDERED: Propofol BOLUS 1,000 MG/100 ML VIAL IV PRN (13:30)
[2021-10-24] MEDS ORDERED: Electrolyte Replacement Protocol FS PRN (13:45)
[2021-10-24] MEDS: Propofol 1,000 MG/100 ML VIAL IV PRN (14:20)
[2021-10-24] MEDS ORDERED: Sodium Chloride 0.9% 500 ML IVPB SCH (16:15)
[2021-10-24] MEDS: Ampicillin/Sulbactam 3 GM in Sodium Chloride 0.9% 100 ML IVPB SCH ×2 (16:19→22:39)
[2021-10-24 18:59] LABS: SARS-CoV-2 NAA Rapid Test Not Detected (NotDetected)
[2021-10-24] MEDS: Sodium Chloride 0.9% 1,000 ML IV SCH (19:40)
[2021-10-24] MEDS: Atorvastatin Calcium 40 MG TAB PO SCH (20:04)
[2021-10-25] MEDS: Acetaminophen 325 MG TAB PO PRN (00:13)
[2021-10-25 04:39] LABS: #Monocytes 0.5 thou/uL (0.11-0.59); #Neutrophils 5.6 thou/uL (1.40-6.50); %Basophils 0.5 % (0.0-1.0); %Eosinophils 0.3 % (0.0-10.0); %Lymphocytes 24.4 % (21.0-51.0); %Monocytes 6.4 % (0.0-10.0); %Neutrophils 68.5 % (42.0-75.0); Mean Corpuscular HGB CONC 35.7 g/dL (32.0-36.0); Mean Corpuscular Hemoglobin 34.2 pg (27.0-31.0); Mean Corpuscular Volume 95.8 fL (78.0-98.0); Platelet Count 163 thou/uL (130-400); RBC Distribution Width 13.5 % (11.5-14.5); Red Blood Cell (RBC) Count 3.81 mill/uL (4.70-6.10); White Blood Cell (WBC) Count 8.2 thou/uL (4.8-10.8)
[2021-10-25 04:56] LABS: Anion Gap 12 mmol/L (10-20); BUN (Urea Nitrogen) 18 mg/dL (8.4-25.7); Calc. Creatinine Clearance 69 mL/min (70-130); Calcium 8.8 mg/dL (7.8-10.44); Carbon Dioxide 22 mmol/L (23-31); Cardiac Risk 4.9 (Less than 4.5); Chloride 109 mmol/L (98-107); Cholesterol 176 mg/dl (< 200 Desired); Glucose 136 mg/dL (83-110); HDL Cholesterol 36 mg/dL (>60 Neg Risk); LDL Cholesterol, Calculated 111 mg/dL; Potassium 3.5 mmol/L (3.5-5.1); Sodium 139 mmol/L (136-145); Triglycerides 143 mg/dL (Less than 150)
[2021-10-25] MEDS: Ampicillin/Sulbactam 3 GM in Sodium Chloride 0.9% 100 ML IVPB SCH ×4 (04:57→21:04)
[2021-10-25] MEDS: Potassium Chloride 20 MEQ in Premix Bag 1 BAG IVPB SCH ×2 (07:53→10:11)
[2021-10-25 08:24] LABS: Actual Bicarbonate (HCO3a) 17.1 mEq/L (22-28); Base Excess (BEa) -3.1 mEq/L (-2.0 to +3.0); Calcium, Ionized (arterial) 1.09 mmol/L (1.12-1.30); Carboxyhemoglobin (COHb) 0.5 gm% (0.0-3.0); Hemoglobin (Hb) 13.7 g/dL (14.0-18.0); O2 Tension (PaO2), arterial 129.1 mmHg (> 70.0); Potassium - ABG Lab 3.61 mmol/L (3.70-5.30); pH, Arterial 7.54 (7.35-7.45)
[2021-10-25 08:27] LABS: CO2 Tension 20.4 mmHg (35.0-45.0); Puncture Site Arterial Line
[2021-10-25] MEDS: Sodium Chloride 0.9% 1,000 ML IV SCH ×2 (10:11→19:09)
[2021-10-25] MEDS: Aspirin 300 MG Suppository PR SCH (10:11)
[2021-10-25] MEDS: Pantoprazole 40 MG VIAL IVP SCH (10:12)
[2021-10-25] MEDS: Atorvastatin Calcium 40 MG TAB PO SCH (21:04)
[2021-10-26] MEDS: Propofol 1,000 MG/100 ML VIAL IV PRN (00:17)
[2021-10-26] MEDS: Ampicillin/Sulbactam 3 GM in Sodium Chloride 0.9% 100 ML IVPB SCH ×4 (03:21→22:15)
[2021-10-26 03:44] LABS: #Eosinphils 0.1 thou/uL (0.0-0.7); #Lymphocytes 1.5 thou/uL (1.20-3.40); #Monocytes 0.4 thou/uL (0.11-0.59); #Neutrophils 4.5 thou/uL (1.40-6.50); %Basophils 0.6 % (0.0-1.0); %Eosinophils 1.7 % (0.0-10.0); %Lymphocytes 22.9 % (21.0-51.0); %Monocytes 6.4 % (0.0-10.0); %Neutrophils 68.4 % (42.0-75.0); Hemoglobin 12.5 g/dL (14.0-18.0); Mean Corpuscular HGB CONC 35.9 g/dL (32.0-36.0); Mean Corpuscular Volume 97.6 fL (78.0-98.0); Mean Platelet Volume 7.4 fL (7.4-10.4); Platelet Count 124 thou/uL (130-400); RBC Distribution Width 13.8 % (11.5-14.5); Red Blood Cell (RBC) Count 3.56 mill/uL (4.70-6.10); White Blood Cell (WBC) Count 6.6 thou/uL (4.8-10.8)
[2021-10-26 04:07] LABS: Anion Gap 11 mmol/L (10-20); BUN (Urea Nitrogen) 20 mg/dL (8.4-25.7); Calc. Creatinine Clearance 81 mL/min (70-130); Calcium 8.2 mg/dL (7.8-10.44); Carbon Dioxide 22 mmol/L (23-31); Chloride 110 mmol/L (98-107); Glucose 112 mg/dL (83-110); Sodium 139 mmol/L (136-145)
[2021-10-26] MEDS: Sodium Chloride 0.9% 1,000 ML IV SCH ×2 (05:12→15:29)
[2021-10-26 07:44] LABS: Actual Bicarbonate (HCO3a) 19.3 mEq/L (22-28); Base Excess (BEa) -4.5 mEq/L (-2.0 to +3.0); CO2 Tension 31.3 mmHg (35.0-45.0); Calcium, Ionized (arterial) 1.13 mmol/L (1.12-1.30); Carboxyhemoglobin (COHb) 0.2 gm% (0.0-3.0); Hemoglobin (Hb) 12.1 g/dL (14.0-18.0); O2 Tension (PaO2), arterial 152.7 mmHg (> 70.0); Potassium - ABG Lab 4.01 mmol/L (3.70-5.30); pH, Arterial 7.41 (7.35-7.45)
[2021-10-26 07:49] LABS: ALV-art Gradient 93.375 mmHg (0-20); Puncture Site Arterial Line
[2021-10-26 08:09] LABS: Hemoglobin A1c 5.7 % (4.0-6.0)
[2021-10-26] MEDS: Aspirin 300 MG Suppository PR SCH (08:37)
[2021-10-26] MEDS: Pantoprazole 40 MG VIAL IVP SCH (09:51)
[2021-10-26] MEDS ORDERED: Dexamethasone 6 MG in Sodium Chloride 0.9% 50 ML IVPB SCH (11:15)
[2021-10-26] MEDS ORDERED: Dexamethasone 4 mg/ml Vial SLOW IVP SCH (11:45)
[2021-10-26 12:35] LABS: Actual Bicarbonate (HCO3v) 20 mEq/L (22-28); Base Excess -4.7 mEq/L (-2.0 to +3.0); Calcium, Ionized (venous) 1.13 mmol/L (1.16-1.32); Chloride (VBG) 107 mmol/L (98-106); Potassium (VBG) 4.33 mmol/L (3.70-5.30); Sodium 139.6 mmol/L (133-146); pH (venous) 7.38 (7.32-7.43)
[2021-10-26] MEDS ORDERED: Rocuronium Bromide 50 MG/5 ML VIAL ONE (14:53)
[2021-10-26] MEDS ORDERED: Propofol 1,000 MG/100 ML VIAL IV ONE (14:53)
[2021-10-26] MEDS ORDERED: Fentanyl 100 MCG/2 ML VIAL ONE (14:53)
[2021-10-26] MEDS ORDERED: Propofol 1,000 MG/100 ML VIAL IV SCH (15:00)
[2021-10-26] MEDS ORDERED: Fentanyl 100 MCG/2 ML VIAL SLOW IVP SCH (15:00)
[2021-10-26] MEDS ORDERED: Rocuronium Bromide 50 MG/5 ML VIAL IVP SCH (15:00)
[2021-10-26 15:51] LABS: Actual Bicarbonate (HCO3a) 20.2 mEq/L (22-28); Base Excess (BEa) -3.4 mEq/L (-2.0 to +3.0); CO2 Tension 32.5 mmHg (35.0-45.0); Calcium, Ionized (arterial) 1.16 mmol/L (1.12-1.30); O2 Tension (PaO2), arterial 77.1 mmHg (> 70.0); Potassium - ABG Lab 4.05 mmol/L (3.70-5.30); pH, Arterial 7.41 (7.35-7.45)
[2021-10-26] MEDS: Atorvastatin Calcium 40 MG TAB PO SCH (20:09)
[2021-10-27] MEDS: Propofol 1,000 MG/100 ML VIAL IV PRN (00:08)
[2021-10-27] MEDS: Ampicillin/Sulbactam 3 GM in Sodium Chloride 0.9% 100 ML IVPB SCH ×4 (03:16→21:38)
[2021-10-27 03:56] LABS: #Lymphocytes 1.1 thou/uL (1.20-3.40); #Monocytes 0.4 thou/uL (0.11-0.59); #Neutrophils 4.7 thou/uL (1.40-6.50); %Basophils 0.1 % (0.0-1.0); %Eosinophils 0.3 % (0.0-10.0); %Monocytes 6.3 % (0.0-10.0); %Neutrophils 76.3 % (42.0-75.0); Hemoglobin 11.9 g/dL (14.0-18.0); Mean Corpuscular Hemoglobin 33.9 pg (27.0-31.0); Mean Corpuscular Volume 96.7 fL (78.0-98.0); Mean Platelet Volume 7.4 fL (7.4-10.4); Platelet Count 114 thou/uL (130-400); RBC Distribution Width 13.4 % (11.5-14.5); Red Blood Cell (RBC) Count 3.52 mill/uL (4.70-6.10); White Blood Cell (WBC) Count 6.2 thou/uL (4.8-10.8)
[2021-10-27 04:09] LABS: Anion Gap 12 mmol/L (10-20); BUN (Urea Nitrogen) 26 mg/dL (8.4-25.7); Calc. Creatinine Clearance 83 mL/min (70-130); Calcium 8.3 mg/dL (7.8-10.44); Carbon Dioxide 20 mmol/L (23-31); Chloride 111 mmol/L (98-107); Glucose 112 mg/dL (83-110); Potassium 4.3 mmol/L (3.5-5.1); Sodium 139 mmol/L (136-145)
[2021-10-27] MEDS: Sodium Chloride 0.9% 1,000 ML IV SCH ×2 (06:12→21:48)
[2021-10-27] MEDS: Aspirin 300 MG Suppository PR SCH (08:05)
[2021-10-27] MEDS: Pantoprazole 40 MG VIAL IVP SCH (08:05)
[2021-10-27 08:55] LABS: Puncture Site RRA
[2021-10-27 08:56] LABS: ALV-art Gradient 131.825 mmHg (0-20)
[2021-10-27] MEDS ORDERED: FLU VACC QS2021-22(65YR UP)/PF 240 MCG/0.7 ML SYRINGE IM ONE (09:00)
[2021-10-27 09:12] LABS: Actual Bicarbonate (HCO3v) 22 mEq/L (22-28); Base Excess -2.5 mEq/L (-2.0 to +3.0); Calcium, Ionized (venous) 1.14 mmol/L (1.16-1.32); Chloride (VBG) 109 mmol/L (98-106); Hemoglobin (Hb) 12.7 g/dL (12.6-17.4); Potassium (VBG) 4.19 mmol/L (3.70-5.30); Sodium 139.5 mmol/L (133-146)
[2021-10-27] MEDS: Atorvastatin Calcium 40 MG TAB PO SCH (21:38)
[2021-10-28] MEDS: Diltiazem HCl 125 MG, Admixture Fee 1 EACH in Sodium Chloride 0.9% 100 ML IVPB SCH ×2 (00:46→12:52)
[2021-10-28] MEDS: Propofol 1,000 MG/100 ML VIAL IV PRN (00:57)
[2021-10-28] MEDS: Ampicillin/Sulbactam 3 GM in Sodium Chloride 0.9% 100 ML IVPB SCH ×4 (03:51→22:32)
[2021-10-28 03:55] LABS: Anion Gap 10 mmol/L (10-20); BUN (Urea Nitrogen) 24 mg/dL (8.4-25.7); Calc. Creatinine Clearance 82 mL/min (70-130); Calcium 8.2 mg/dL (7.8-10.44); Carbon Dioxide 22 mmol/L (23-31); Chloride 110 mmol/L (98-107); Glucose 90 mg/dL (83-110); Potassium 3.7 mmol/L (3.5-5.1); Sodium 138 mmol/L (136-145)
[2021-10-28 04:22] LABS: #Eosinphils 0.3 thou/uL (0.0-0.7); #Lymphocytes 1.7 thou/uL (1.20-3.40); #Monocytes 0.4 thou/uL (0.11-0.59); #Neutrophils 4.1 thou/uL (1.40-6.50); %Basophils 0.5 % (0.0-1.0); %Eosinophils 4.2 % (0.0-10.0); %Monocytes 5.6 % (0.0-10.0); %Neutrophils 63.7 % (42.0-75.0); Hemoglobin 11.7 g/dL (14.0-18.0); Mean Corpuscular HGB CONC 35.4 g/dL (32.0-36.0); Mean Corpuscular Volume 96.1 fL (78.0-98.0); Mean Platelet Volume 7.8 fL (7.4-10.4); Platelet Count 117 thou/uL (130-400); RBC Distribution Width 13.6 % (11.5-14.5); Red Blood Cell (RBC) Count 3.45 mill/uL (4.70-6.10); White Blood Cell (WBC) Count 6.5 thou/uL (4.8-10.8)
[2021-10-28 07:35] LABS: Actual Bicarbonate (HCO3a) 22.4 mEq/L (22-28); Base Excess (BEa) -0.7 mEq/L (-2.0 to +3.0); CO2 Tension 31.7 mmHg (35.0-45.0); Calcium, Ionized (arterial) 1.13 mmol/L (1.12-1.30); Hemoglobin (Hb) 11.5 g/dL (14.0-18.0); O2 Tension (PaO2), arterial 100.4 mmHg (> 70.0); Potassium - ABG Lab 3.58 mmol/L (3.70-5.30); pH, Arterial 7.47 (7.35-7.45)
[2021-10-28 07:42] LABS: ALV-art Gradient 109.525 mmHg (0-20); Puncture Site LRA
[2021-10-28] MEDS: Aspirin 300 MG Suppository PR SCH (08:08)
[2021-10-28] MEDS: Pantoprazole 40 MG VIAL IVP SCH (08:08)
[2021-10-28] MEDS: Sodium Chloride 0.9% 1,000 ML IV SCH ×2 (10:57→22:38)
[2021-10-28] MEDS ORDERED: Metoprolol Tartrate 50 MG TAB PO SCH (21:00)
[2021-10-28] MEDS ORDERED: Morphine 4 MG/ML VIAL ONE (21:02)
[2021-10-28] MEDS: Atorvastatin Calcium 40 MG TAB PO SCH (21:59)
[2021-10-29] MEDS: Ampicillin/Sulbactam 3 GM in Sodium Chloride 0.9% 100 ML IVPB SCH ×4 (04:26→22:52)
[2021-10-29 07:39] LABS: Anion Gap 10 mmol/L (10-20); BUN (Urea Nitrogen) 30 mg/dL (8.4-25.7); Calc. Creatinine Clearance 94 mL/min (70-130); Calcium 7.9 mg/dL (7.8-10.44); Carbon Dioxide 21 mmol/L (23-31); Chloride 111 mmol/L (98-107); Glucose 143 mg/dL (83-110); Potassium 3.7 mmol/L (3.5-5.1); Sodium 138 mmol/L (136-145)
[2021-10-29 07:55] LABS: #Eosinphils 0.2 thou/uL (0.0-0.7); #Lymphocytes 1.2 thou/uL (1.20-3.40); #Monocytes 0.3 thou/uL (0.11-0.59); %Basophils 0.3 % (0.0-1.0); %Eosinophils 4.7 % (0.0-10.0); %Lymphocytes 26.1 % (21.0-51.0); %Monocytes 6.2 % (0.0-10.0); %Neutrophils 62.7 % (42.0-75.0); Hemoglobin 10.7 g/dL (14.0-18.0); Mean Corpuscular Hemoglobin 34.1 pg (27.0-31.0); Mean Corpuscular Volume 97.3 fL (78.0-98.0); Mean Platelet Volume 7.9 fL (7.4-10.4); Platelet Count 113 thou/uL (130-400); RBC Distribution Width 13.2 % (11.5-14.5); Red Blood Cell (RBC) Count 3.16 mill/uL (4.70-6.10); White Blood Cell (WBC) Count 4.7 thou/uL (4.8-10.8)
[2021-10-29] MEDS: Pantoprazole 40 MG VIAL IVP SCH (08:24)
[2021-10-29] MEDS: Aspirin 300 MG Suppository PR SCH (08:24)
[2021-10-29 08:43] LABS: Actual Bicarbonate (HCO3a) 23.3 mEq/L (22-28); Base Excess (BEa) 0.4 mEq/L (-2.0 to +3.0); CO2 Tension 31.9 mmHg (35.0-45.0); Calcium, Ionized (arterial) 1.13 mmol/L (1.12-1.30); Carboxyhemoglobin (COHb) 0.3 gm% (0.0-3.0); Hemoglobin (Hb) 11.2 g/dL (14.0-18.0); Potassium - ABG Lab 3.56 mmol/L (3.70-5.30); pH, Arterial 7.48 (7.35-7.45)
[2021-10-29 08:46] LABS: ALV-art Gradient 57.025 mmHg (0-20); Puncture Site RRA
[2021-10-29] MEDS ORDERED: Diltiazem HCl CD 300 mg Capsule PO SCH (09:00)
[2021-10-29] MEDS: Aspirin 325 MG TAB PO SCH (09:30)
[2021-10-29] MEDS: Atorvastatin Calcium 40 MG TAB PO SCH (21:55)
[2021-10-30 04:18] LABS: #Eosinphils 0.3 thou/uL (0.0-0.7); #Lymphocytes 1.3 thou/uL (1.20-3.40); #Monocytes 0.3 thou/uL (0.11-0.59); #Neutrophils 2.9 thou/uL (1.40-6.50); %Basophils 0.7 % (0.0-1.0); %Eosinophils 6.1 % (0.0-10.0); %Monocytes 6.9 % (0.0-10.0); %Neutrophils 60.3 % (42.0-75.0); Hemoglobin 11.6 g/dL (14.0-18.0); Mean Corpuscular HGB CONC 36.3 g/dL (32.0-36.0); Mean Corpuscular Hemoglobin 34.9 pg (27.0-31.0); Mean Corpuscular Volume 96.1 fL (78.0-98.0); Mean Platelet Volume 7.9 fL (7.4-10.4); Platelet Count 116 thou/uL (130-400); RBC Distribution Width 13.4 % (11.5-14.5); Red Blood Cell (RBC) Count 3.31 mill/uL (4.70-6.10); White Blood Cell (WBC) Count 4.8 thou/uL (4.8-10.8)
[2021-10-30 04:24] LABS: Anion Gap 12 mmol/L (10-20); BUN (Urea Nitrogen) 23 mg/dL (8.4-25.7); Calc. Creatinine Clearance 105 mL/min (70-130); Calcium 8.3 mg/dL (7.8-10.44); Carbon Dioxide 22 mmol/L (23-31); Chloride 110 mmol/L (98-107); Glucose 128 mg/dL (83-110); Potassium 3.5 mmol/L (3.5-5.1); Sodium 140 mmol/L (136-145)
[2021-10-30] MEDS: Ampicillin/Sulbactam 3 GM in Sodium Chloride 0.9% 100 ML IVPB SCH ×4 (04:49→21:04)
[2021-10-30] MEDS: Potassium Chloride 20 MEQ in Premix Bag 1 BAG IVPB SCH ×2 (05:08→07:23)
[2021-10-30] MEDS: Aspirin 325 MG TAB PO SCH (08:38)
[2021-10-30] MEDS: Pantoprazole 40 MG VIAL IVP SCH (08:38)
[2021-10-30] MEDS: Lorazepam 2 MG/ML VIAL SLOW IVP PRN (15:10)
[2021-10-30] MEDS: Atorvastatin Calcium 40 MG TAB PO SCH (20:34)
[2021-10-31] MEDS: Ampicillin/Sulbactam 3 GM in Sodium Chloride 0.9% 100 ML IVPB SCH ×4 (03:03→21:14)
[2021-10-31 03:57] LABS: #Eosinphils 0.4 thou/uL (0.0-0.7); #Lymphocytes 1.9 thou/uL (1.20-3.40); #Monocytes 0.4 thou/uL (0.11-0.59); #Neutrophils 3.7 thou/uL (1.40-6.50); %Basophils 0.4 % (0.0-1.0); %Eosinophils 5.8 % (0.0-10.0); %Lymphocytes 30.3 % (21.0-51.0); %Monocytes 5.9 % (0.0-10.0); %Neutrophils 57.6 % (42.0-75.0); Hemoglobin 12.6 g/dL (14.0-18.0); Mean Corpuscular HGB CONC 36.1 g/dL (32.0-36.0); Mean Corpuscular Hemoglobin 34.6 pg (27.0-31.0); Mean Corpuscular Volume 95.8 fL (78.0-98.0); Mean Platelet Volume 7.5 fL (7.4-10.4); Platelet Count 130 thou/uL (130-400); RBC Distribution Width 13.3 % (11.5-14.5); Red Blood Cell (RBC) Count 3.64 mill/uL (4.70-6.10); White Blood Cell (WBC) Count 6.4 thou/uL (4.8-10.8)
[2021-10-31 04:14] LABS: Anion Gap 13 mmol/L (10-20); BUN (Urea Nitrogen) 20 mg/dL (8.4-25.7); Calc. Creatinine Clearance 110 mL/min (70-130); Calcium 8.4 mg/dL (7.8-10.44); Carbon Dioxide 21 mmol/L (23-31); Chloride 108 mmol/L (98-107); Glucose 118 mg/dL (83-110); Sodium 138 mmol/L (136-145)
[2021-10-31 07:22] LABS: Actual Bicarbonate (HCO3a) 24.5 mEq/L (22-28); Base Excess (BEa) 0.9 mEq/L (-2.0 to +3.0); CO2 Tension 35.3 mmHg (35.0-45.0); Calcium, Ionized (arterial) 1.15 mmol/L (1.12-1.30); Carboxyhemoglobin (COHb) 0.3 gm% (0.0-3.0); Hemoglobin (Hb) 11.5 g/dL (14.0-18.0); O2 Tension (PaO2), arterial 96.5 mmHg (> 70.0); Potassium - ABG Lab 3.63 mmol/L (3.70-5.30); pH, Arterial 7.46 (7.35-7.45)
[2021-10-31 07:51] LABS: ALV-art Gradient 73.275 mmHg (0-20); Puncture Site LRA
[2021-10-31] MEDS: Aspirin 325 MG TAB PO SCH (09:35)
[2021-10-31] MEDS: Pantoprazole 40 MG VIAL IVP SCH (09:35)
[2021-10-31] MEDS: Scopolamine 1.5 mg/72 hour Patch TD SCH (12:10)
[2021-10-31] MEDS ORDERED: Amlodipine 5 MG TAB PO SCH (18:15)
[2021-10-31] MEDS: Atorvastatin Calcium 40 MG TAB PO SCH (20:11)
[2021-11-01] MEDS: Ampicillin/Sulbactam 3 GM in Sodium Chloride 0.9% 100 ML IVPB SCH ×4 (03:01→21:55)
[2021-11-01 04:04] LABS: #Eosinphils 0.2 thou/uL (0.0-0.7); #Lymphocytes 1.3 thou/uL (1.20-3.40); #Monocytes 0.3 thou/uL (0.11-0.59); #Neutrophils 3.6 thou/uL (1.40-6.50); %Basophils 0.3 % (0.0-1.0); %Eosinophils 4.3 % (0.0-10.0); %Lymphocytes 23.9 % (21.0-51.0); %Monocytes 5.9 % (0.0-10.0); %Neutrophils 65.6 % (42.0-75.0); Hemoglobin 11.4 g/dL (14.0-18.0); Mean Corpuscular HGB CONC 35.9 g/dL (32.0-36.0); Mean Corpuscular Hemoglobin 34.6 pg (27.0-31.0); Mean Corpuscular Volume 96.3 fL (78.0-98.0); Mean Platelet Volume 7.4 fL (7.4-10.4); Platelet Count 125 thou/uL (130-400); RBC Distribution Width 13.2 % (11.5-14.5); Red Blood Cell (RBC) Count 3.31 mill/uL (4.70-6.10); White Blood Cell (WBC) Count 5.5 thou/uL (4.8-10.8)
[2021-11-01 04:17] LABS: Anion Gap 9 mmol/L (10-20); BUN (Urea Nitrogen) 21 mg/dL (8.4-25.7); Calc. Creatinine Clearance 95 mL/min (70-130); Calcium 8.4 mg/dL (7.8-10.44); Carbon Dioxide 25 mmol/L (23-31); Chloride 108 mmol/L (98-107); Glucose 128 mg/dL (83-110); Potassium 3.9 mmol/L (3.5-5.1); Sodium 138 mmol/L (136-145)
[2021-11-01] MEDS: Aspirin 325 MG TAB PO SCH (09:26)
[2021-11-01] MEDS: Pantoprazole 40 MG VIAL IVP SCH (09:26)
[2021-11-01] MEDS: Amlodipine 5 MG TAB PO SCH (09:27)
[2021-11-01 11:07] LABS: SARS-CoV-2 PCR by NAA Not Detected (NotDetected)
[2021-11-01] MEDS ORDERED: Clopidogrel Bisulfate 75 MG TAB PO SCH (16:30)
[2021-11-01] MEDS: Atorvastatin Calcium 40 MG TAB PO SCH (21:55)
[2021-11-02 03:58] LABS: Anion Gap 12 mmol/L (10-20); BUN (Urea Nitrogen) 25 mg/dL (8.4-25.7); Calc. Creatinine Clearance 95 mL/min (70-130); Calcium 8.5 mg/dL (7.8-10.44); Carbon Dioxide 24 mmol/L (23-31); Chloride 107 mmol/L (98-107); Glucose 124 mg/dL (83-110); Potassium 3.9 mmol/L (3.5-5.1); Sodium 139 mmol/L (136-145)
[2021-11-02] MEDS: Ampicillin/Sulbactam 3 GM in Sodium Chloride 0.9% 100 ML IVPB SCH ×2 (04:34→09:54)
[2021-11-02 05:43] LABS: Band 7 % (5-11); Eosinophils 2 % (0-10); Hemoglobin 11.5 g/dL (14.0-18.0); Lymphocytes 22 % (21-51); MDiff Complete? YES; Mean Corpuscular Hemoglobin 34.4 pg (27.0-31.0); Mean Corpuscular Volume 95.7 fL (78.0-98.0); Mean Platelet Volume 7.6 fL (7.4-10.4); Monocytes 6 % (0-10); Neutrophil 63 % (42-75); Platelet Count 139 thou/uL (130-400); RBC Distribution Width 13.4 % (11.5-14.5); Red Blood Cell (RBC) Count 3.34 mill/uL (4.70-6.10); White Blood Cell (WBC) Count 6.1 thou/uL (4.8-10.8)
[2021-11-02] MEDS: Aspirin 325 MG TAB PO SCH (08:54)
[2021-11-02] MEDS: Amlodipine 5 MG TAB PO SCH (08:54)
[2021-11-02] MEDS: Pantoprazole 40 MG VIAL IVP SCH (08:54)
[2021-11-02] MEDS: Clopidogrel Bisulfate 75 MG TAB PO SCH (08:56)
[2021-11-02] MEDS: Atorvastatin Calcium 40 MG TAB PO SCH (20:08)
[2021-11-03 04:55] LABS: Hemoglobin 11.2 g/dL (14.0-18.0); Mean Corpuscular HGB CONC 36.4 g/dL (32.0-36.0); Mean Corpuscular Hemoglobin 35.1 pg (27.0-31.0); Mean Corpuscular Volume 96.5 fL (78.0-98.0); Platelet Count 144 thou/uL (130-400); RBC Distribution Width 13.5 % (11.5-14.5); Red Blood Cell (RBC) Count 3.19 mill/uL (4.70-6.10); White Blood Cell (WBC) Count 6.4 thou/uL (4.8-10.8)
[2021-11-03 05:12] LABS: Anion Gap 10 mmol/L (10-20); BUN (Urea Nitrogen) 24 mg/dL (8.4-25.7); Calc. Creatinine Clearance 92 mL/min (70-130); Calcium 8.5 mg/dL (7.8-10.44); Carbon Dioxide 26 mmol/L (23-31); Chloride 106 mmol/L (98-107); Glucose 107 mg/dL (83-110); Potassium 4.1 mmol/L (3.5-5.1); Sodium 138 mmol/L (136-145)
[2021-11-03 05:34] LABS: Band 5 % (5-11); Eosinophils 2 % (0-10); Lymphocytes 21 % (21-51); MDiff Complete? YES; Monocytes 3 % (0-10); Neutrophil 67 % (42-75); Reactive Lymphocytes 2 % (0-10)
[2021-11-03 07:45] LABS: Actual Bicarbonate (HCO3a) 22.7 mEq/L (22-28); Base Excess (BEa) -0.5 mEq/L (-2.0 to +3.0); CO2 Tension 32.7 mmHg (35.0-45.0); Calcium, Ionized (arterial) 1.19 mmol/L (1.12-1.30); Carboxyhemoglobin (COHb) 0.3 gm% (0.0-3.0); Hemoglobin (Hb) 12.3 g/dL (14.0-18.0); O2 Tension (PaO2), arterial 101.8 mmHg (> 70.0); Potassium - ABG Lab 4.04 mmol/L (3.70-5.30); pH, Arterial 7.46 (7.35-7.45)
[2021-11-03 07:46] LABS: ALV-art Gradient 71.225 mmHg (0-20); Puncture Site RRA
[2021-11-03] MEDS: Aspirin Chewable 81 MG TAB PO SCH (09:11)
[2021-11-03] MEDS: Amlodipine 5 MG TAB PO SCH (09:11)
[2021-11-03] MEDS: Pantoprazole 40 MG VIAL IVP SCH (09:12)
[2021-11-03] MEDS: Clopidogrel Bisulfate 75 MG TAB PO SCH (09:12)
[2021-11-03] MEDS: Scopolamine 1.5 mg/72 hour Patch TD SCH (11:00)
[2021-11-03] MEDS ORDERED: Milk Of Magnesia 30 ML UDCUP PO PRN (15:53)
[2021-11-03] MEDS ORDERED: Polyethylene Glycol 3350 17 GM Packet PO PRN (15:54)
[2021-11-03] MEDS: Atorvastatin Calcium 40 MG TAB PO SCH (20:08)
[2021-11-04 04:25] LABS: Hemoglobin 12.6 g/dL (14.0-18.0); Mean Corpuscular HGB CONC 36.3 g/dL (32.0-36.0); Mean Corpuscular Hemoglobin 34.9 pg (27.0-31.0); Mean Corpuscular Volume 96.2 fL (78.0-98.0); Mean Platelet Volume 7.6 fL (7.4-10.4); Platelet Count 182 thou/uL (130-400); RBC Distribution Width 13.5 % (11.5-14.5); Red Blood Cell (RBC) Count 3.61 mill/uL (4.70-6.10); White Blood Cell (WBC) Count 7.7 thou/uL (4.8-10.8)
[2021-11-04 04:34] LABS: Anion Gap 11 mmol/L (10-20); BUN (Urea Nitrogen) 26 mg/dL (8.4-25.7); Calc. Creatinine Clearance 77 mL/min (70-130); Calcium 8.9 mg/dL (7.8-10.44); Carbon Dioxide 27 mmol/L (23-31); Chloride 101 mmol/L (98-107); Glucose 110 mg/dL (83-110); Potassium 4.3 mmol/L (3.5-5.1); Sodium 135 mmol/L (136-145)
[2021-11-04 05:57] LABS: Band 1 % (5-11); Eosinophils 5 % (0-10); Lymphocytes 24 % (21-51); MDiff Complete? YES; Monocytes 5 % (0-10); Neutrophil 64 % (42-75); Platelet Morphology Comment Appears Adequate; RBC Morphology Normal
[2021-11-04] MEDS: Pantoprazole 40 MG VIAL IVP SCH (09:42)
[2021-11-04] MEDS: Clopidogrel Bisulfate 75 MG TAB PO SCH (09:43)
[2021-11-04] MEDS: Amlodipine 5 MG TAB PO SCH (09:43)
[2021-11-04] MEDS: Aspirin Chewable 81 MG TAB PO SCH (09:43)
[2021-11-04] MEDS: Atorvastatin Calcium 40 MG TAB PO SCH (20:06)
[2021-11-05 04:07] LABS: Hemoglobin 12.5 g/dL (14.0-18.0); Mean Corpuscular HGB CONC 36.3 g/dL (32.0-36.0); Mean Corpuscular Hemoglobin 34.9 pg (27.0-31.0); Mean Corpuscular Volume 96.2 fL (78.0-98.0); Mean Platelet Volume 7.9 fL (7.4-10.4); Platelet Count 193 thou/uL (130-400); RBC Distribution Width 13.8 % (11.5-14.5); Red Blood Cell (RBC) Count 3.58 mill/uL (4.70-6.10); White Blood Cell (WBC) Count 8.2 thou/uL (4.8-10.8)
[2021-11-05 04:29] LABS: Anion Gap 11 mmol/L (10-20); BUN (Urea Nitrogen) 24 mg/dL (8.4-25.7); Calc. Creatinine Clearance 82 mL/min (70-130); Carbon Dioxide 26 mmol/L (23-31); Chloride 101 mmol/L (98-107); Glucose 100 mg/dL (83-110); Potassium 4.3 mmol/L (3.5-5.1); Sodium 134 mmol/L (136-145)
[2021-11-05 04:59] LABS: Band 1 % (5-11); Eosinophils 3 % (0-10); Lymphocytes 19 % (21-51); MDiff Complete? YES; Monocytes 3 % (0-10); Neutrophil 74 % (42-75); Platelet Morphology Comment Appears Adequate; RBC Morphology Normal
[2021-11-05] MEDS ORDERED: Midazolam HCl 2 mg/2 ml Vial ONE (07:14)
[2021-11-05] MEDS ORDERED: Fentanyl 100 MCG/2 ML VIAL ONE (07:14)
[2021-11-05 07:33] LABS: Actual Bicarbonate (HCO3a) 23.7 mEq/L (22-28); Base Excess (BEa) 1.1 mEq/L (-2.0 to +3.0); CO2 Tension 32.3 mmHg (35.0-45.0); Calcium, Ionized (arterial) 1.16 mmol/L (1.12-1.30); O2 Tension (PaO2), arterial 91.3 mmHg (> 70.0); pH, Arterial 7.48 (7.35-7.45)
[2021-11-05 07:40] LABS: Puncture Site LRA
[2021-11-05 07:41] LABS: ALV-art Gradient 82.225 mmHg (0-20)
[2021-11-05] MEDS ORDERED: Bupivacaine 0.25% 10 ML VIAL ONE (07:41)
[2021-11-05] MEDS ORDERED: Lidocaine 1% w/Epinephrine 1:100K 20 ML VIAL ONE (07:41)
[2021-11-05] MEDS ORDERED: Lidocaine 1% PF 5 ML VIAL ONE (08:23)
[2021-11-05] MEDS ORDERED: Rocuronium Bromide 10 MG/ML (10ML VIAL) ONE (08:23)
[2021-11-05] MEDS ORDERED: PROPOFOL 200 MG/20 ML VIAL ONE (08:23)
[2021-11-05] MEDS: Amlodipine 5 MG TAB PO SCH (08:45)
[2021-11-05] MEDS: Clopidogrel Bisulfate 75 MG TAB PO SCH (08:45)
[2021-11-05] MEDS: Aspirin Chewable 81 MG TAB PO SCH (08:45)
[2021-11-05] MEDS: Lorazepam 2 MG/ML VIAL SLOW IVP PRN (09:39)
[2021-11-05] MEDS: Pantoprazole 40 MG VIAL IVP SCH (09:39)
[2021-11-05] MEDS: Acetaminophen 325 MG TAB PO PRN (19:58)
[2021-11-05] MEDS: Atorvastatin Calcium 40 MG TAB PO SCH (19:59)
[2021-11-06 03:59] LABS: Anion Gap 12 mmol/L (10-20); BUN (Urea Nitrogen) 30 mg/dL (8.4-25.7); Calc. Creatinine Clearance 77 mL/min (70-130); Calcium 8.7 mg/dL (7.8-10.44); Carbon Dioxide 24 mmol/L (23-31); Chloride 102 mmol/L (98-107); Glucose 138 mg/dL (83-110); Magnesium 2.4 mg/dL (1.6-2.6); Phosphorus 3.9 mg/dL (2.3-4.7); Potassium 4.2 mmol/L (3.5-5.1); Sodium 134 mmol/L (136-145)
[2021-11-06 04:31] LABS: Band 3 % (5-11); Hemoglobin 12.1 g/dL (14.0-18.0); Lymphocytes 15 % (21-51); MDiff Complete? YES; Mean Corpuscular HGB CONC 36.5 g/dL (32.0-36.0); Mean Corpuscular Hemoglobin 35.1 pg (27.0-31.0); Mean Corpuscular Volume 96.1 fL (78.0-98.0); Mean Platelet Volume 7.9 fL (7.4-10.4); Monocytes 6 % (0-10); Neutrophil 76 % (42-75); Platelet Count 210 thou/uL (130-400); Platelet Morphology Comment Appears Adequate; RBC Distribution Width 13.8 % (11.5-14.5); RBC Morphology Normal; Red Blood Cell (RBC) Count 3.46 mill/uL (4.70-6.10); White Blood Cell (WBC) Count 8.4 thou/uL (4.8-10.8)
[2021-11-06 07:44] LABS: Actual Bicarbonate (HCO3a) 23.5 mEq/L (22-28); CO2 Tension 34.5 mmHg (35.0-45.0); Calcium, Ionized (arterial) 1.13 mmol/L (1.12-1.30); Carboxyhemoglobin (COHb) 0.4 gm% (0.0-3.0); Hemoglobin (Hb) 11.8 g/dL (14.0-18.0); O2 Tension (PaO2), arterial 96.1 mmHg (> 70.0); Potassium - ABG Lab 4.11 mmol/L (3.70-5.30); pH, Arterial 7.45 (7.35-7.45)
[2021-11-06 07:52] LABS: Puncture Site LRA
[2021-11-06 07:53] LABS: ALV-art Gradient 74.675 mmHg (0-20)
[2021-11-06] MEDS: Clopidogrel Bisulfate 75 MG TAB PO SCH (09:26)
[2021-11-06] MEDS: Aspirin Chewable 81 MG TAB PO SCH (09:26)
[2021-11-06] MEDS: Amlodipine 5 MG TAB PO SCH (09:26)
[2021-11-06] MEDS: Pantoprazole 40 MG VIAL IVP SCH (09:27)
[2021-11-06] MEDS: Scopolamine 1.5 mg/72 hour Patch TD SCH (11:04)
[2021-11-06] MEDS ORDERED: Bisacodyl 10 MG SUPP PR PRN (11:58)
[2021-11-06] MEDS: Acetaminophen 650 MG/20.3 ML UDCUP PER TUBE PRN (18:46)
[2021-11-06] MEDS: Senokot S 8.6-50 MG TAB PER TUBE SCH (20:28)
[2021-11-06] MEDS: Atorvastatin Calcium 40 MG TAB PO SCH (20:28)
[2021-11-07] MEDS: Acetaminophen 650 MG/20.3 ML UDCUP PER TUBE PRN ×2 (00:10→20:56)
[2021-11-07 04:30] LABS: Hemoglobin 11.7 g/dL (14.0-18.0); Mean Corpuscular HGB CONC 36.2 g/dL (32.0-36.0); Mean Corpuscular Hemoglobin 35.3 pg (27.0-31.0); Mean Corpuscular Volume 97.4 fL (78.0-98.0); Mean Platelet Volume 7.7 fL (7.4-10.4); Platelet Count 202 thou/uL (130-400); RBC Distribution Width 13.9 % (11.5-14.5); Red Blood Cell (RBC) Count 3.32 mill/uL (4.70-6.10); White Blood Cell (WBC) Count 9.6 thou/uL (4.8-10.8)
[2021-11-07 04:45] LABS: Band 3 % (5-11); Lymphocytes 10 % (21-51); MDiff Complete? YES; Monocytes 4 % (0-10); Neutrophil 83 % (42-75); Platelet Morphology Comment Appears Adequate; RBC Morphology Normal
[2021-11-07 04:49] LABS: Anion Gap 10 mmol/L (10-20); BUN (Urea Nitrogen) 32 mg/dL (8.4-25.7); Calc. Creatinine Clearance 70 mL/min (70-130); Calcium 8.7 mg/dL (7.8-10.44); Carbon Dioxide 25 mmol/L (23-31); Chloride 103 mmol/L (98-107); Glucose 157 mg/dL (83-110); Magnesium 2.4 mg/dL (1.6-2.6); Phosphorus 3.8 mg/dL (2.3-4.7); Potassium 3.9 mmol/L (3.5-5.1); Sodium 134 mmol/L (136-145)
[2021-11-07] MEDS: Senokot S 8.6-50 MG TAB PER TUBE SCH ×2 (09:15→20:56)
[2021-11-07] MEDS: Aspirin Chewable 81 MG TAB PO SCH (09:15)
[2021-11-07] MEDS: Amlodipine 5 MG TAB PO SCH (09:15)
[2021-11-07] MEDS: Polyethylene Glycol 3350 17 GM Packet PER TUBE SCH (09:16)
[2021-11-07] MEDS: Pantoprazole 40 MG VIAL IVP SCH (09:16)
[2021-11-07] MEDS: Apixaban 5 MG TAB PO SCH ×2 (09:21→20:56)
[2021-11-07] MEDS: Atorvastatin Calcium 40 MG TAB PO SCH (20:56)
[2021-11-08 05:15] LABS: Band 4 % (5-11); Hemoglobin 12.2 g/dL (14.0-18.0); Lymphocytes 12 % (21-51); MDiff Complete? YES; Mean Corpuscular HGB CONC 34.9 g/dL (32.0-36.0); Mean Corpuscular Hemoglobin 34.2 pg (27.0-31.0); Mean Platelet Volume 7.8 fL (7.4-10.4); Monocytes 2 % (0-10); Neutrophil 82 % (42-75); Platelet Count 260 thou/uL (130-400); Platelet Morphology Comment Appears Adequate; RBC Distribution Width 13.8 % (11.5-14.5); RBC Morphology Normal; Red Blood Cell (RBC) Count 3.58 mill/uL (4.70-6.10); White Blood Cell (WBC) Count 11.5 thou/uL (4.8-10.8)
[2021-11-08 05:18] LABS: Anion Gap 12 mmol/L (10-20); BUN (Urea Nitrogen) 29 mg/dL (8.4-25.7); Calc. Creatinine Clearance 72 mL/min (70-130); Calcium 8.9 mg/dL (7.8-10.44); Carbon Dioxide 26 mmol/L (23-31); Chloride 102 mmol/L (98-107); Glucose 143 mg/dL (83-110); Magnesium 2.2 mg/dL (1.6-2.6); Phosphorus 3.3 mg/dL (2.3-4.7); Potassium 4.1 mmol/L (3.5-5.1); Sodium 136 mmol/L (136-145)
[2021-11-08] MEDS: Acetaminophen 650 MG/20.3 ML UDCUP PER TUBE PRN ×2 (07:37→20:38)
[2021-11-08] MEDS: Polyethylene Glycol 3350 17 GM Packet PER TUBE SCH (08:06)
[2021-11-08] MEDS: Senokot S 8.6-50 MG TAB PER TUBE SCH ×2 (08:06→20:38)
[2021-11-08] MEDS: Amlodipine 5 MG TAB PO SCH (08:22)
[2021-11-08] MEDS: Aspirin Chewable 81 MG TAB PO SCH (08:22)
[2021-11-08] MEDS: Apixaban 5 MG TAB PO SCH ×2 (08:22→20:38)
[2021-11-08] MEDS: Pantoprazole 40 MG VIAL IVP SCH (08:22)
[2021-11-08] MEDS ORDERED: VANCOMYCIN IVPB PRN (10:39)
[2021-11-08 11:16] LABS: Bacteria/HPF 2+ HPF (None Seen); Bilirubin Negative (Negative); Blood, Urine 2+ (Negative); Clarity Clear (Clear); Glucose, Urine (Dipstick) Normal (Negative); Ketone, Urine Negative (Negative); Leukocyte 250 Leu/uL (Negative); Nitrite Negative (Negative); Protein, Urine (Dipstick) 50 mg/dL (Neg-Trace); Specific Gravity, Urine 1.027 (1.002-1.036); Squamous Epithelial 0-3 HPF (0-3); Urobilinogen Greater than 12 mg/dL (Less than 2); WBC/HPF 21-50 HPF (0-3)
[2021-11-08] MEDS: Cefepime 1 GM in Sodium Chloride 0.9% 100 ML IVPB SCH ×2 (12:52→23:45)
[2021-11-08] MEDS: VANCOMYCIN 2 GRAM/400 ML BAG 2 GM in Premix Bag 1 BAG IVPB SCH (15:01)
[2021-11-08] MEDS ORDERED: GUAIFENESIN SF SOLN 200 MG/10 ML UDCUP PER TUBE PRN (18:00)
[2021-11-08] MEDS: Atorvastatin Calcium 40 MG TAB PO SCH (20:38)
[2021-11-09 04:27] LABS: Anion Gap 14 mmol/L (10-20); BUN (Urea Nitrogen) 29 mg/dL (8.4-25.7); Calc. Creatinine Clearance 72 mL/min (70-130); Calcium 9.1 mg/dL (7.8-10.44); Carbon Dioxide 23 mmol/L (23-31); Chloride 104 mmol/L (98-107); Glucose 140 mg/dL (83-110); Magnesium 2.4 mg/dL (1.6-2.6); Potassium 4.3 mmol/L (3.5-5.1); Sodium 137 mmol/L (136-145)
[2021-11-09 05:21] LABS: Eosinophils 3 % (0-10); Hemoglobin 12.1 g/dL (14.0-18.0); Lymphocytes 8 % (21-51); MDiff Complete? YES; Mean Corpuscular HGB CONC 35.1 g/dL (32.0-36.0); Mean Corpuscular Hemoglobin 34.5 pg (27.0-31.0); Mean Corpuscular Volume 98.3 fL (78.0-98.0); Mean Platelet Volume 7.7 fL (7.4-10.4); Monocytes 4 % (0-10); Neutrophil 85 % (42-75); Platelet Count 284 thou/uL (130-400); Platelet Morphology Comment Appears Adequate; RBC Morphology Normal; Red Blood Cell (RBC) Count 3.52 mill/uL (4.70-6.10); White Blood Cell (WBC) Count 11.6 thou/uL (4.8-10.8)
[2021-11-09] MEDS: Amlodipine 5 MG TAB PO SCH (08:22)
[2021-11-09] MEDS: Senokot S 8.6-50 MG TAB PER TUBE SCH ×2 (08:23→21:07)
[2021-11-09] MEDS: Pantoprazole 40 MG VIAL IVP SCH (08:23)
[2021-11-09] MEDS: Aspirin Chewable 81 MG TAB PO SCH (08:23)
[2021-11-09] MEDS: Apixaban 5 MG TAB PO SCH ×2 (08:23→21:07)
[2021-11-09] MEDS: Polyethylene Glycol 3350 17 GM Packet PER TUBE SCH (10:50)
[2021-11-09] MEDS: Scopolamine 1.5 mg/72 hour Patch TD SCH (12:01)
[2021-11-09] MEDS: Cefepime 1 GM in Sodium Chloride 0.9% 100 ML IVPB SCH (12:01)
[2021-11-09] MEDS: VANCOMYCIN 2 GRAM/400 ML BAG 2 GM in Premix Bag 1 BAG IVPB SCH (12:02)
[2021-11-09] MEDS: Atorvastatin Calcium 40 MG TAB PO SCH (21:07)
[2021-11-09 23:27] LABS: SARS-CoV-2 PCR by NAA Not Detected (NotDetected)
[2021-11-10] MEDS: Cefepime 1 GM in Sodium Chloride 0.9% 100 ML IVPB SCH ×3 (00:44→23:10)
[2021-11-10 03:41] LABS: Mean Corpuscular HGB CONC 35.3 g/dL (32.0-36.0); Mean Corpuscular Hemoglobin 34.9 pg (27.0-31.0); Mean Corpuscular Volume 98.9 fL (78.0-98.0); Mean Platelet Volume 7.6 fL (7.4-10.4); Platelet Count 329 thou/uL (130-400); RBC Distribution Width 13.6 % (11.5-14.5); Red Blood Cell (RBC) Count 3.16 mill/uL (4.70-6.10)
[2021-11-10] MEDS ORDERED: Acetaminophen 650 MG Suppository PR SCH (04:00)
[2021-11-10 04:01] LABS: Anion Gap 13 mmol/L (10-20); BUN (Urea Nitrogen) 37 mg/dL (8.4-25.7); Calc. Creatinine Clearance 65 mL/min (70-130); Carbon Dioxide 22 mmol/L (23-31); Chloride 105 mmol/L (98-107); Glucose 156 mg/dL (83-110); Magnesium 2.4 mg/dL (1.6-2.6); Potassium 4.4 mmol/L (3.5-5.1); Sodium 136 mmol/L (136-145)
[2021-11-10 04:21] LABS: Band 9 % (5-11); Eosinophils 1 % (0-10); Lymphocytes 17 % (21-51); MDiff Complete? YES; Monocytes 8 % (0-10); Neutrophil 65 % (42-75); Nucleated RBC 1 % (0); Platelet Morphology Comment Appears Adequate; RBC Morphology Normal
[2021-11-10 07:05] LABS: ALT (SGPT) 19 U/L (8-55); AST (SGOT) 30 U/L (5-34); Albumin 3.1 g/dL (3.4-4.8); Alkaline Phosphatase 85 U/L (40-110); Bilirubin, Direct 0.5 mg/dL (0.1-0.3); Bilirubin, Total 1.2 mg/dL (0.2-1.2); Lipase 28 U/L (8-78); Protein, Total 6.3 g/dL (5.8-8.1)
[2021-11-10] MEDS: Apixaban 5 MG TAB PO SCH ×2 (07:28→20:41)
[2021-11-10] MEDS: Pantoprazole 40 MG VIAL IVP SCH (07:29)
[2021-11-10] MEDS: Aspirin Chewable 81 MG TAB PO SCH (07:29)
[2021-11-10] MEDS: Amlodipine 5 MG TAB PO SCH (07:29)
[2021-11-10] MEDS: Senokot S 8.6-50 MG TAB PER TUBE SCH ×2 (07:29→20:41)
[2021-11-10] MEDS: Polyethylene Glycol 3350 17 GM Packet PER TUBE SCH (07:29)
[2021-11-10] MEDS: Milk Of Magnesia 30 ML UDCUP PO SCH (11:30)
[2021-11-10 11:31] LABS: Vancomycin, Trough 10.6 ug/mL
[2021-11-10] MEDS ORDERED: Vancomycin 1.5 GRAM/300 ML BAG 1.5 GM in Premix Bag 1 BAG IVPB SCH (14:00)
[2021-11-10] MEDS: VANCOMYCIN 2 GRAM/400 ML BAG 2 GM in Premix Bag 1 BAG IVPB SCH (14:22)
[2021-11-10 14:36] VITALS: BMI 27.8
[2021-11-10] MEDS: Atorvastatin Calcium 40 MG TAB PO SCH (20:41)
[2021-11-10] MEDS: Ciprofloxacin 500 MG TAB PO SCH (20:41)
[2021-11-11 04:30] LABS: Hemoglobin 11.1 g/dL (14.0-18.0); Mean Corpuscular HGB CONC 34.2 g/dL (32.0-36.0); Mean Corpuscular Hemoglobin 33.5 pg (27.0-31.0); Mean Platelet Volume 7.5 fL (7.4-10.4); Platelet Count 331 thou/uL (130-400); RBC Distribution Width 13.6 % (11.5-14.5); Red Blood Cell (RBC) Count 3.31 mill/uL (4.70-6.10); White Blood Cell (WBC) Count 7.5 thou/uL (4.8-10.8)
[2021-11-11 04:31] LABS: Anion Gap 10 mmol/L (10-20); BUN (Urea Nitrogen) 31 mg/dL (8.4-25.7); Calc. Creatinine Clearance 76 mL/min (70-130); Carbon Dioxide 26 mmol/L (23-31); Chloride 104 mmol/L (98-107); Glucose 145 mg/dL (83-110); Magnesium 2.4 mg/dL (1.6-2.6); Phosphorus 3.7 mg/dL (2.3-4.7); Potassium 4.4 mmol/L (3.5-5.1); Sodium 136 mmol/L (136-145)
[2021-11-11] MEDS: Ciprofloxacin 500 MG TAB PO SCH (05:20)
[2021-11-11 05:41] LABS: Band 5 % (5-11); Eosinophils 2 % (0-10); Lymphocytes 26 % (21-51); MDiff Complete? YES; Monocytes 11 % (0-10); Neutrophil 56 % (42-75)
[2021-11-11] MEDS: Aspirin Chewable 81 MG TAB PO SCH (07:45)
[2021-11-11] MEDS: Amlodipine 5 MG TAB PO SCH (07:45)
[2021-11-11] MEDS: Pantoprazole 40 MG VIAL IVP SCH (07:45)
[2021-11-11] MEDS: Senokot S 8.6-50 MG TAB PER TUBE SCH (07:45)
[2021-11-11] MEDS: Apixaban 5 MG TAB PO SCH (07:46)
[2021-11-11] MEDS: Milk Of Magnesia 30 ML UDCUP PO SCH (07:46)
[2021-11-11] MEDS: Polyethylene Glycol 3350 17 GM Packet PER TUBE SCH (07:46)
[2021-11-11 11:48] VITALS: BP 110/79
[2021-11-11 12:06] VITALS: TEMP 97.7
== END 2021-11-11 13:09 | DRG 3 ==
LOC: ERS 09:17 → CCU 10:40 → IMCU/EMU 11-08 14:27
PROVIDERS: ADMIT Neurological Surgery; ATTEND Family Medicine
PROC: B31R1ZZ Fluoroscopy of Intracranial Arteries using Low Osmolar Contrast (ICD-10-PCS; principal; 2021-10-24)
PROC: 03CG3ZZ Extirpation of Matter from Intracranial Artery, Percutaneous Approach (ICD-10-PCS; 2021-10-24)
PROC: 3E03317 Introduction of Other Thrombolytic into Peripheral Vein, Percutaneous Approach (ICD-10-PCS; 2021-10-24)
PROC: 0BH17EZ Insertion of Endotracheal Airway into Trachea, Via Natural or Artificial Opening (ICD-10-PCS; 2021-10-24)
PROC: 5A1945Z Respiratory Ventilation, 24-96 Consecutive Hours (ICD-10-PCS; 2021-10-24)
PROC: 5A1955Z Respiratory Ventilation, Greater than 96 Consecutive Hours (ICD-10-PCS; 2021-10-26)
PROC: 0BH17EZ Insertion of Endotracheal Airway into Trachea, Via Natural or Artificial Opening (ICD-10-PCS; 2021-10-26)
PROC: 0D9670Z Drainage of Stomach with Drainage Device, Via Natural or Artificial Opening (ICD-10-PCS; 2021-10-26)
PROC: 0B110F4 Bypass Trachea to Cutaneous with Tracheostomy Device, Open Approach (ICD-10-PCS; 2021-11-05)
PROC: 0DH63UZ Insertion of Feeding Device into Stomach, Percutaneous Approach (ICD-10-PCS; 2021-11-05)
DX: I63.22 Cerebral infarction due to unspecified occlusion or stenosis of basilar artery (principal); T83.511A Infection and inflammatory reaction due to indwelling urethral catheter, initial encounter; G93.41 Metabolic encephalopathy; J69.0 Pneumonitis due to inhalation of food and vomit; J96.01 Acute respiratory failure with hypoxia; I61.9 Nontraumatic intracerebral hemorrhage, unspecified; E46 Unspecified protein-calorie malnutrition; J98.11 Atelectasis; Z20.822 Contact with and (suspected) exposure to COVID-19; I63.219 Cerebral infarction due to unspecified occlusion or stenosis of unspecified vertebral artery; E78.5 Hyperlipidemia, unspecified; I10 Essential (primary) hypertension; I48.0 Paroxysmal atrial fibrillation; K80.80 Other cholelithiasis without obstruction; E78.00 Pure hypercholesterolemia, unspecified; M79.662 Pain in left lower leg; R50.9 Fever, unspecified; K59.00 Constipation, unspecified; R11.10 Vomiting, unspecified; B96.89 Other specified bacterial agents as the cause of diseases classified elsewhere; Y84.6 Urinary catheterization as the cause of abnormal reaction of the patient, or of later complication, without mention of misadventure at the time of the procedure; Z68.28 Body mass index [BMI] 28.0-28.9, adult; Z79.82 Long term (current) use of aspirin; Z79.899 Other long term (current) drug therapy; Z86.711 Personal history of pulmonary embolism; Z87.01 Personal history of pneumonia (recurrent); Z90.49 Acquired absence of other specified parts of digestive tract; Z83.3 Family history of diabetes mellitus; Z87.891 Personal history of nicotine dependence
CPT/HCPCS: 31500; 36215; 36217; 36225; 36415; 36416; 36600; 51701; 61645; 70450; 70496; 70498; 70551; 71045; 74018; 74177; 75902; 80048; 80053; 80061; 80076; 80202; 81001; 82805; 83036; 83690; 83735; 84100; 84443; 84484; 85007; 85025; 85027; 85610; 85730; 87040; 87070; 87077; 87086; 87149; 87186; 87205; 93005; 93010; 93306; 94002; 94003; 94640; 94760; 96365; 96374; 96375; C1713; C1887; C9113; J0295; J0692; J1100; J1644; J2060; J2250; J2704; J2997; J3010; J3370; J3480; J3490; J7030; J7050; Q9967; S0020; U0002; U0003; U0005

== ENCOUNTER 2021-12-09 22:01 | Inpatient (IN) | payer MEDICARE ==
[~2021-12-09 22:01] MED LIST: Iopamidol-370 76% 500 ML 1 ML ONE
[2021-12-09 23:01] LABS: #Eosinphils 0.2 thou/uL (0.0-0.7); #Monocytes 0.8 thou/uL (0.11-0.59); %Basophils 0.2 % (0.0-1.0); %Eosinophils 1.3 % (0.0-10.0); %Monocytes 4.4 % (0.0-10.0); %Neutrophils 83.2 % (42.0-75.0); Hemoglobin 14.4 g/dL (14.0-18.0); Mean Corpuscular HGB CONC 33.9 g/dL (32.0-36.0); Mean Corpuscular Hemoglobin 33.7 pg (27.0-31.0); Mean Corpuscular Volume 99.5 fL (78.0-98.0); Mean Platelet Volume 9.1 fL (7.4-10.4); Platelet Count 233 thou/uL (130-400); RBC Distribution Width 12.3 % (11.5-14.5); Red Blood Cell (RBC) Count 4.27 mill/uL (4.70-6.10)
[2021-12-09 23:20] LABS: ALT (SGPT) 34 U/L (8-55); AST (SGOT) 29 U/L (5-34); Albumin 3.5 g/dL (3.4-4.8); Alkaline Phosphatase 114 U/L (40-110); Anion Gap 17 mmol/L (10-20); BUN (Urea Nitrogen) 35 mg/dL (8.4-25.7); Bilirubin, Total 0.9 mg/dL (0.2-1.2); Calc. Creatinine Clearance 0 mL/min (70-130); Calcium 9.9 mg/dL (7.8-10.44); Carbon Dioxide 27 mmol/L (23-31); Chloride 99 mmol/L (98-107); Glucose 173 mg/dL (83-110); Lipase 27 U/L (8-78); Magnesium 2.3 mg/dL (1.6-2.6); Potassium 4.5 mmol/L (3.5-5.1); Protein, Total 7.5 g/dL (5.8-8.1); Sodium 138 mmol/L (136-145)
[2021-12-09] MEDS ORDERED: Promethazine HCl 25 MG/ML VIAL ONE (23:21)
[2021-12-10 00:38] LABS: Bilirubin Negative (Negative); Blood, Urine Negative (Negative); Clarity Clear (Clear); Glucose, Urine (Dipstick) Normal (Negative); Ketone, Urine Negative (Negative); Leukocyte Negative Leu/uL (Negative); Nitrite Negative (Negative); Protein, Urine (Dipstick) 20 mg/dL (Neg-Trace); Specific Gravity, Urine 1.026 (1.002-1.036); Urobilinogen Normal mg/dL (Less than 2)
[2021-12-10] MEDS ORDERED: Acetaminophen 325 MG Suppository ONE (02:00)
[2021-12-10 02:06] LABS: Lactic Acid 3.2 mmol/L (0.5-2.2)
[2021-12-10] MEDS ORDERED: Cefepime 2 GM VIAL ONE (02:19)
[2021-12-10] MEDS ORDERED: Acetaminophen 650 MG Suppository PR PRN (02:42)
[2021-12-10] MEDS ORDERED: Ondansetron PF 4 MG/2 ML Vial IVP PRN (02:45)
[2021-12-10] MEDS ORDERED: Sodium Chloride 0.9% 1,000 ML IV SCH (02:45)
[2021-12-10] MEDS ORDERED: Ondansetron ODT 4 MG TAB SL PRN (02:45)
[2021-12-10] MEDS ORDERED: VANCOMYCIN 2 GRAM/400 ML BAG 2 GM in Premix Bag 1 BAG IVPB SCH (03:15)
[2021-12-10] MEDS ORDERED: hydrALAZINE 20 MG/ML VIAL SLOW IVP PRN (03:32)
[2021-12-10 04:04] LABS: SARS-CoV-2 NAA Rapid Test Not Detected (NotDetected)
[2021-12-10 04:45] LABS: #Eosinphils 0.1 thou/uL (0.0-0.7); #Lymphocytes 1.7 thou/uL (1.20-3.40); #Monocytes 0.7 thou/uL (0.11-0.59); #Neutrophils 13.3 thou/uL (1.40-6.50); %Basophils 0.1 % (0.0-1.0); %Eosinophils 0.6 % (0.0-10.0); %Lymphocytes 10.6 % (21.0-51.0); %Monocytes 4.1 % (0.0-10.0); %Neutrophils 84.6 % (42.0-75.0); Hemoglobin 12.2 g/dL (14.0-18.0); Mean Corpuscular HGB CONC 33.9 g/dL (32.0-36.0); Mean Corpuscular Hemoglobin 33.3 pg (27.0-31.0); Platelet Count 181 thou/uL (130-400); RBC Distribution Width 12.2 % (11.5-14.5); Red Blood Cell (RBC) Count 3.66 mill/uL (4.70-6.10); White Blood Cell (WBC) Count 15.7 thou/uL (4.8-10.8)
[2021-12-10 05:03] LABS: Anion Gap 18 mmol/L (10-20); BUN (Urea Nitrogen) 35 mg/dL (8.4-25.7); Calc. Creatinine Clearance 0 mL/min (70-130); Calcium 8.9 mg/dL (7.8-10.44); Carbon Dioxide 23 mmol/L (23-31); Chloride 103 mmol/L (98-107); Glucose 146 mg/dL (83-110); Potassium 4.5 mmol/L (3.5-5.1); Sodium 139 mmol/L (136-145)
[2021-12-10 05:20] VITALS: BMI 27.9
[2021-12-10] MEDS ORDERED: Metoclopramide 10 MG/10 ML UDCUP PER TUBE SCH (06:00)
[2021-12-10] MEDS ORDERED: metroNIDAZOLE 500 MG in Premix Bag 1 BAG IVPB SCH (06:00)
[2021-12-10] MEDS: Sodium Chloride 0.9% 1,000 ML IV SCH (06:25)
[2021-12-10] MEDS: metroNIDAZOLE 500 MG TAB PER TUBE SCH ×3 (06:25→16:38)
[2021-12-10] MEDS ORDERED: FLU VACC QS2021-22(65YR UP)/PF 240 MCG/0.7 ML SYRINGE IM ONE (09:00)
[2021-12-10] MEDS ORDERED: Acetaminophen 650 MG/20.3 ML UDCUP PER TUBE PRN (17:49)
[2021-12-10] MEDS: Apixaban 5 MG TAB PO SCH (19:56)
[2021-12-10] MEDS: Atorvastatin Calcium 40 MG TAB PO SCH (19:56)
[2021-12-10] MEDS: Ondansetron PF 4 MG/2 ML Vial IVP SCH (19:57)
[2021-12-11] MEDS: Sodium Chloride 0.9% 1,000 ML IV SCH ×2 (00:39→21:34)
[2021-12-11] MEDS: metroNIDAZOLE 500 MG TAB PER TUBE SCH ×4 (00:39→18:18)
[2021-12-11] MEDS ORDERED: VANCOMYCIN 1.75 GM/350 ML BAG 1.75 GM in Premix Bag 1 BAG IVPB SCH (04:00)
[2021-12-11] MEDS: Polyethylene Glycol 3350 17 GM Packet PER TUBE SCH (08:32)
[2021-12-11] MEDS: Ondansetron PF 4 MG/2 ML Vial IVP SCH ×2 (08:32→21:34)
[2021-12-11] MEDS: Aspirin Chewable 81 MG TAB PER TUBE SCH (08:32)
[2021-12-11] MEDS: Apixaban 5 MG TAB PO SCH ×2 (08:32→21:37)
[2021-12-11] MEDS: Amlodipine 5 MG TAB PO SCH (08:32)
[2021-12-11 08:35] LABS: Hemoglobin 11.3 g/dL (14.0-18.0); Mean Corpuscular Hemoglobin 32.9 pg (27.0-31.0); Mean Corpuscular Volume 99.5 fL (78.0-98.0); Mean Platelet Volume 8.8 fL (7.4-10.4); Platelet Count 144 thou/uL (130-400); RBC Distribution Width 12.1 % (11.5-14.5); Red Blood Cell (RBC) Count 3.45 mill/uL (4.70-6.10)
[2021-12-11 08:51] LABS: Lactic Acid 1.1 mmol/L (0.5-2.2)
[2021-12-11 08:58] LABS: Troponin I Less than 0.010 ng/mL (< 0.028)
[2021-12-11] MEDS ORDERED: Magnesium Citrate 300 ML BOT PO SCH (14:45)
[2021-12-11] MEDS: Atorvastatin Calcium 40 MG TAB PO SCH (21:37)
[2021-12-12] MEDS: metroNIDAZOLE 500 MG TAB PER TUBE SCH ×2 (00:20→06:20)
[2021-12-12 04:05] LABS: Vancomycin, Trough 3.8 ug/mL
[2021-12-12] MEDS: Ondansetron PF 4 MG/2 ML Vial IVP SCH ×2 (08:40→22:09)
[2021-12-12] MEDS: Polyethylene Glycol 3350 17 GM Packet PER TUBE SCH (08:41)
[2021-12-12] MEDS: Aspirin Chewable 81 MG TAB PER TUBE SCH (08:41)
[2021-12-12] MEDS: Apixaban 5 MG TAB PO SCH ×2 (08:41→22:12)
[2021-12-12] MEDS: Amlodipine 5 MG TAB PO SCH (08:41)
[2021-12-12] MEDS: Metoclopramide 10 MG/10 ML UDCUP PER TUBE PRN (13:40)
[2021-12-12] MEDS: Atorvastatin Calcium 40 MG TAB PO SCH (22:12)
[2021-12-13] MEDS: Amlodipine 5 MG TAB PO SCH (08:56)
[2021-12-13] MEDS: Aspirin Chewable 81 MG TAB PER TUBE SCH (08:57)
[2021-12-13] MEDS: Apixaban 5 MG TAB PO SCH ×2 (08:57→21:39)
[2021-12-13] MEDS: Ondansetron PF 4 MG/2 ML Vial IVP SCH ×2 (08:57→21:39)
[2021-12-13] MEDS: Polyethylene Glycol 3350 17 GM Packet PER TUBE SCH (08:58)
[2021-12-13 13:02] LABS: Actual Bicarbonate (HCO3v) 27 mEq/L (22-28); Base Excess 2.6 mEq/L (-2.0 to +3.0); Calcium, Ionized (venous) 1.12 mmol/L (1.16-1.32); Chloride (VBG) 103 mmol/L (98-106); Hemoglobin (Hb) 13.5 g/dL (12.6-17.4); Potassium (VBG) 4.35 mmol/L (3.70-5.30); Sodium 136.6 mmol/L (133-146); pH (venous) 7.44 (7.32-7.43)
[2021-12-13] MEDS ORDERED: Glycopyrrolate 0.2 MG/ML 5 ML SYRINGE SLOW IVP SCH (17:15)
[2021-12-13] MEDS: Atorvastatin Calcium 40 MG TAB PO SCH (21:39)
[2021-12-14] MEDS: Apixaban 5 MG TAB PO SCH ×2 (08:13→22:18)
[2021-12-14] MEDS: Polyethylene Glycol 3350 17 GM Packet PER TUBE SCH (08:13)
[2021-12-14] MEDS: Amlodipine 5 MG TAB PO SCH (08:13)
[2021-12-14] MEDS: Aspirin Chewable 81 MG TAB PER TUBE SCH (08:13)
[2021-12-14] MEDS: Ondansetron PF 4 MG/2 ML Vial IVP SCH ×2 (08:13→22:17)
[2021-12-14] MEDS: Metoclopramide 10 MG/10 ML UDCUP PER TUBE PRN (17:54)
[2021-12-14] MEDS: Atorvastatin Calcium 40 MG TAB PO SCH (22:18)
[2021-12-15] MEDS: Ondansetron PF 4 MG/2 ML Vial IVP SCH (09:34)
[2021-12-15] MEDS: Amlodipine 5 MG TAB PO SCH (09:34)
[2021-12-15] MEDS: Apixaban 5 MG TAB PO SCH (09:34)
[2021-12-15] MEDS: Aspirin Chewable 81 MG TAB PER TUBE SCH (09:34)
[2021-12-15] MEDS: Polyethylene Glycol 3350 17 GM Packet PER TUBE SCH (09:35)
[2021-12-15 15:38] VITALS: BP 125/81; TEMP 98.1
== END 2021-12-15 17:25 | DRG 391 ==
LOC: ERS 22:01 → SURG A 12-10 03:25 → OBSVTOIN 12-10 17:51
PROVIDERS: ADMIT Internal Medicine; ATTEND Internal Medicine
DX: K59.09 Other constipation (principal); I63.9 Cerebral infarction, unspecified; E87.2 Acidosis; G93.49 Other encephalopathy; I10 Essential (primary) hypertension; I48.0 Paroxysmal atrial fibrillation; Z20.822 Contact with and (suspected) exposure to COVID-19; R13.12 Dysphagia, oropharyngeal phase; Z90.49 Acquired absence of other specified parts of digestive tract; I69.391 Dysphagia following cerebral infarction
CPT/HCPCS: 0240U; 36415; 70450; 70551; 71045; 74018; 74177; 80048; 80053; 80202; 81003; 82805; 83605; 83690; 83735; 84484; 85025; 85027; 87040; 87086; 87149; 90471; 90662; 90732; 93005; 95816; 95819; 95957; G0008; G0009; G0378; J0692; J2405; J2550; J3370; J7050; Q9967

== ENCOUNTER 2021-12-16 14:40 | Inpatient (IN) | payer MEDICARE ==
[2021-12-16] MEDS ORDERED: Acetaminophen 650 MG Suppository ONE (15:10)
[2021-12-16] MEDS ORDERED: Cefepime 2 GM VIAL ONE (15:12)
[2021-12-16] MEDS ORDERED: Vancomycin 1 GM/200 ML BAG ONE (15:12)
[2021-12-16 15:16] LABS: #Basophils 0.1 thou/uL (0.0-0.2); #Eosinphils 0.1 thou/uL (0.0-0.7); #Lymphocytes 1.9 thou/uL (1.20-3.40); #Monocytes 0.7 thou/uL (0.11-0.59); #Neutrophils 10.5 thou/uL (1.40-6.50); %Basophils 0.5 % (0.0-1.0); %Eosinophils 0.4 % (0.0-10.0); %Lymphocytes 14.4 % (21.0-51.0); %Monocytes 5.4 % (0.0-10.0); %Neutrophils 79.2 % (42.0-75.0); Hemoglobin 15.2 g/dL (14.0-18.0); Mean Corpuscular HGB CONC 33.5 g/dL (32.0-36.0); Mean Corpuscular Hemoglobin 32.4 pg (27.0-31.0); Mean Corpuscular Volume 96.7 fL (78.0-98.0); Mean Platelet Volume 8.3 fL (7.4-10.4); Platelet Count 264 thou/uL (130-400); RBC Distribution Width 12.5 % (11.5-14.5); Red Blood Cell (RBC) Count 4.67 mill/uL (4.70-6.10); White Blood Cell (WBC) Count 13.3 thou/uL (4.8-10.8)
[2021-12-16 15:28] LABS: INR-International Normal Ratio 1.3; Prothrombin Time 16.1 sec (12.0-14.7)
[2021-12-16 15:29] LABS: PTT 32.6 sec (22.9-36.1)
[2021-12-16 15:46] LABS: ALT (SGPT) 95 U/L (8-55); AST (SGOT) 56 U/L (5-34); Albumin 3.6 g/dL (3.4-4.8); Alkaline Phosphatase 132 U/L (40-110); Anion Gap 19 mmol/L (10-20); BUN (Urea Nitrogen) 24 mg/dL (8.4-25.7); Bilirubin, Total 1.2 mg/dL (0.2-1.2); Calc. Creatinine Clearance 0 mL/min (70-130); Calcium 9.5 mg/dL (7.8-10.44); Carbon Dioxide 20 mmol/L (23-31); Chloride 101 mmol/L (98-107); Globulin 3.9 g/dL (2.4-3.5); Glucose 230 mg/dL (83-110); Potassium 4.8 mmol/L (3.5-5.1); Protein, Total 7.5 g/dL (5.8-8.1); Sodium 135 mmol/L (136-145)
[2021-12-16 16:25] LABS: Bilirubin Negative (Negative); Blood, Urine Trace (Negative); Glucose, Urine (Dipstick) Negative (Negative); Ketone, Urine Trace mg/dL (Negative); Leukocyte Negative (Negative); Nitrite Negative (Negative); Protein, Urine (Dipstick) Trace mg/dL (Neg-Trace); pH, Urine 6.5 (5.0-9.0)
[2021-12-16 16:38] LABS: Clarity Cloudy (Clear)
[2021-12-16 16:39] LABS: Bacteria/HPF 2+ HPF (None Seen); Mucous/LPF Rare LPF (<2+); Squamous Epithelial 0-3 HPF (0-3); WBC/HPF 0-3 HPF (0-3)
[2021-12-16 17:04] LABS: SARS-CoV-2 NAA Rapid Test DETECTED (NotDetected)
[2021-12-16] MEDS ORDERED: Communication Order-Pharmacy FS SCH (20:18)
[2021-12-16] MEDS ORDERED: Acetaminophen 650 MG Suppository PR PRN (20:24)
[2021-12-16] MEDS ORDERED: Loperamide HCl 2 MG CAP PER TUBE PRN ×2 (20:24)
[2021-12-16] MEDS ORDERED: Guaifenesin DM 100-10/5 ML UDCUP PER TUBE PRN (20:24)
[2021-12-16] MEDS ORDERED: Senokot S 8.6-50 MG TAB PER TUBE PRN (20:24)
[2021-12-16] MEDS ORDERED: Bisacodyl 10 MG SUPP PR PRN (20:24)
[2021-12-16] MEDS ORDERED: Ondansetron PF 4 MG/2 ML Vial IVP PRN (20:24)
[2021-12-16] MEDS ORDERED: Dextrose 5% in Water 1,000 ML IV PRN (20:33)
[2021-12-16] MEDS ORDERED: Dextrose 50% Abboject 50 ML SYRINGE SLOW IVP PRN (20:33)
[2021-12-16] MEDS ORDERED: Promethazine HCl 25 MG SUPP PR PRN (20:42)
[2021-12-16] MEDS ORDERED: Albuterol 200 PUFF (6.7GM INHALER) INH PRN (20:44)
[2021-12-16] MEDS: Sodium Chloride 0.9% 1,000 ML IV SCH (23:02)
[2021-12-16] MEDS: Atorvastatin Calcium 40 MG TAB PER TUBE SCH (23:02)
[2021-12-16] MEDS: Apixaban 5 MG TAB PO SCH (23:03)
[2021-12-16] MEDS: Chlorhexidine Gluconate 15 ML UDCUP SSP SCH (23:03)
[2021-12-16 23:31] VITALS: BMI 27.7
[2021-12-16] MEDS: Cefepime 2 GM in Sodium Chloride 0.9% 100 ML IVPB SCH (23:37)
[2021-12-16] MEDS: Docusate Sodium 100 MG/10 ML UDCUP PER TUBE SCH (23:54)
[2021-12-16] MEDS: Metoclopramide HCl 10 MG TAB PER TUBE SCH (23:55)
[2021-12-17] MEDS: Chlorhexidine Gluconate 15 ML UDCUP SSP SCH ×6 (01:17→20:21)
[2021-12-17] MEDS: VANCOMYCIN 1.25 GM/250 ML BAG 1.25 GM in Premix Bag 1 BAG IVPB SCH ×2 (01:27→12:26)
[2021-12-17] MEDS: Sodium Chloride 0.9% 1,000 ML IV SCH ×3 (04:01→13:22)
[2021-12-17] MEDS: Metoclopramide HCl 10 MG TAB PER TUBE SCH ×4 (04:43→20:21)
[2021-12-17] MEDS: Zinc Sulfate 220 MG CAP PER TUBE SCH (09:23)
[2021-12-17] MEDS: Cholecalciferol (Vitamin D3) 400 UNITS TAB PER TUBE SCH (09:23)
[2021-12-17] MEDS: Aspirin Chewable 81 MG TAB PER TUBE SCH (09:23)
[2021-12-17] MEDS: Cefepime 2 GM in Sodium Chloride 0.9% 100 ML IVPB SCH (09:23)
[2021-12-17] MEDS: Apixaban 5 MG TAB PO SCH ×2 (09:24→20:21)
[2021-12-17] MEDS: Ascorbic Acid 500 mg Chewable Tablet PER TUBE SCH (09:24)
[2021-12-17] MEDS: Docusate Sodium 100 MG/10 ML UDCUP PER TUBE SCH ×2 (09:25→20:21)
[2021-12-17] MEDS: Polyethylene Glycol 3350 17 GM Packet PER TUBE SCH (09:25)
[2021-12-17 14:44] LABS: #Eosinphils 0.1 thou/uL (0.0-0.7); #Lymphocytes 1.3 thou/uL (1.20-3.40); #Monocytes 0.4 thou/uL (0.11-0.59); #Neutrophils 3.9 thou/uL (1.40-6.50); %Basophils 0.2 % (0.0-1.0); %Eosinophils 0.9 % (0.0-10.0); %Lymphocytes 22.9 % (21.0-51.0); %Monocytes 7.2 % (0.0-10.0); %Neutrophils 68.8 % (42.0-75.0); Hemoglobin 10.6 g/dL (14.0-18.0); Mean Corpuscular HGB CONC 33.4 g/dL (32.0-36.0); Mean Corpuscular Hemoglobin 33.4 pg (27.0-31.0); Mean Platelet Volume 8.2 fL (7.4-10.4); Platelet Count 171 thou/uL (130-400); RBC Distribution Width 12.4 % (11.5-14.5); Red Blood Cell (RBC) Count 3.19 mill/uL (4.70-6.10); White Blood Cell (WBC) Count 5.7 thou/uL (4.8-10.8)
[2021-12-17 14:53] LABS: ALT (SGPT) 53 U/L (8-55); AST (SGOT) 31 U/L (5-34); Albumin 2.6 g/dL (3.4-4.8); Alkaline Phosphatase 80 U/L (40-110); Anion Gap 14 mmol/L (10-20); BUN (Urea Nitrogen) 19 mg/dL (8.4-25.7); Bilirubin, Total 0.9 mg/dL (0.2-1.2); Calc. Creatinine Clearance 123 mL/min (70-130); Calcium 8.5 mg/dL (7.8-10.44); Carbon Dioxide 21 mmol/L (23-31); Chloride 105 mmol/L (98-107); Globulin 2.7 g/dL (2.4-3.5); Glucose 100 mg/dL (83-110); Potassium 3.8 mmol/L (3.5-5.1); Protein, Total 5.3 g/dL (5.8-8.1); Sodium 136 mmol/L (136-145)
[2021-12-17] MEDS: Atorvastatin Calcium 40 MG TAB PER TUBE SCH (20:21)
[2021-12-17 23:24] LABS: Vancomycin, Trough 14.3 ug/mL
[2021-12-18] MEDS: Chlorhexidine Gluconate 15 ML UDCUP SSP SCH ×6 (01:23→20:44)
[2021-12-18] MEDS: Sodium Chloride 0.9% 1,000 ML IV SCH ×2 (03:29→15:47)
[2021-12-18] MEDS: Metoclopramide HCl 10 MG TAB PER TUBE SCH ×4 (03:39→20:49)
[2021-12-18] MEDS: Ascorbic Acid 500 mg Chewable Tablet PER TUBE SCH (09:22)
[2021-12-18] MEDS: Cholecalciferol (Vitamin D3) 400 UNITS TAB PER TUBE SCH (09:22)
[2021-12-18] MEDS: Aspirin Chewable 81 MG TAB PER TUBE SCH (09:22)
[2021-12-18] MEDS: Apixaban 5 MG TAB PO SCH ×2 (09:23→20:44)
[2021-12-18] MEDS: Zinc Sulfate 220 MG CAP PER TUBE SCH (09:23)
[2021-12-18] MEDS: Docusate Sodium 100 MG/10 ML UDCUP PER TUBE SCH ×2 (09:23→20:45)
[2021-12-18] MEDS: Polyethylene Glycol 3350 17 GM Packet PER TUBE SCH (09:24)
[2021-12-18] MEDS ORDERED: Vancomycin HCl 1 GM in Sodium Chloride 0.9% 250 ML 250 ML IVPB SCH (12:00)
[2021-12-18] MEDS: Vancomycin 1 GM in Premix Bag 1 BAG IVPB SCH (12:27)
[2021-12-18] MEDS: Atorvastatin Calcium 40 MG TAB PER TUBE SCH (20:44)
[2021-12-19] MEDS: Chlorhexidine Gluconate 15 ML UDCUP SSP SCH ×6 (01:05→20:12)
[2021-12-19] MEDS: Vancomycin 1 GM in Premix Bag 1 BAG IVPB SCH ×2 (01:06→13:24)
[2021-12-19 03:46] LABS: Anion Gap 13 mmol/L (10-20); BUN (Urea Nitrogen) 21 mg/dL (8.4-25.7); Calc. Creatinine Clearance 118 mL/min (70-130); Calcium 7.9 mg/dL (7.8-10.44); Carbon Dioxide 23 mmol/L (23-31); Chloride 101 mmol/L (98-107); Glucose 213 mg/dL (83-110); Potassium 3.6 mmol/L (3.5-5.1); Sodium 133 mmol/L (136-145)
[2021-12-19] MEDS: Metoclopramide HCl 10 MG TAB PER TUBE SCH ×3 (05:02→16:14)
[2021-12-19] MEDS: Sodium Chloride 0.9% 1,000 ML IV SCH (05:03)
[2021-12-19] MEDS: Zinc Sulfate 220 MG CAP PER TUBE SCH (08:26)
[2021-12-19] MEDS: Aspirin Chewable 81 MG TAB PER TUBE SCH (08:26)
[2021-12-19] MEDS: Cholecalciferol (Vitamin D3) 400 UNITS TAB PER TUBE SCH (08:26)
[2021-12-19] MEDS: Ascorbic Acid 500 mg Chewable Tablet PER TUBE SCH (08:27)
[2021-12-19] MEDS: Apixaban 5 MG TAB PO SCH ×2 (08:27→20:12)
[2021-12-19] MEDS: Docusate Sodium 100 MG/10 ML UDCUP PER TUBE SCH ×2 (08:28→20:12)
[2021-12-19] MEDS: Polyethylene Glycol 3350 17 GM Packet PER TUBE SCH (08:28)
[2021-12-19] MEDS: Scopolamine 1.5 mg/72 hour Patch TOP SCH (08:28)
[2021-12-19] MEDS ORDERED: Dexamethasone 10 MG/ML VIAL SLOW IVP SCH (14:15)
[2021-12-19] MEDS: Atorvastatin Calcium 40 MG TAB PER TUBE SCH (20:12)
[2021-12-19] MEDS: HumaLOG 300 UNITS/3 ML VIAL SC PRN (21:30)
[2021-12-20] MEDS: HumaLOG 300 UNITS/3 ML VIAL SC PRN ×4 (00:16→20:20)
[2021-12-20] MEDS: Vancomycin 1 GM in Premix Bag 1 BAG IVPB SCH ×2 (00:26→13:36)
[2021-12-20] MEDS: Metoclopramide HCl 10 MG TAB PER TUBE SCH ×5 (00:27→20:20)
[2021-12-20] MEDS: Chlorhexidine Gluconate 15 ML UDCUP SSP SCH ×7 (00:28→20:20)
[2021-12-20] MEDS: Sodium Chloride 0.9% 1,000 ML IV SCH ×3 (07:28→20:21)
[2021-12-20] MEDS: Docusate Sodium 100 MG/10 ML UDCUP PER TUBE SCH ×2 (09:16→20:20)
[2021-12-20] MEDS: Polyethylene Glycol 3350 17 GM Packet PER TUBE SCH (09:16)
[2021-12-20] MEDS: Apixaban 5 MG TAB PO SCH ×2 (09:17→20:20)
[2021-12-20] MEDS: Cholecalciferol (Vitamin D3) 400 UNITS TAB PER TUBE SCH (09:17)
[2021-12-20] MEDS: Aspirin Chewable 81 MG TAB PER TUBE SCH (09:17)
[2021-12-20] MEDS: Zinc Sulfate 220 MG CAP PER TUBE SCH (09:17)
[2021-12-20] MEDS: Ascorbic Acid 500 mg Chewable Tablet PER TUBE SCH (09:17)
[2021-12-20] MEDS: Dexamethasone 10 MG/ML VIAL SLOW IVP SCH (09:18)
[2021-12-20] MEDS ORDERED: Furosemide 20 MG/2 ML VIAL SLOW IVP SCH (17:45)
[2021-12-20] MEDS: Atorvastatin Calcium 40 MG TAB PER TUBE SCH (20:20)
[2021-12-21] MEDS: Chlorhexidine Gluconate 15 ML UDCUP SSP SCH ×4 (01:00→20:01)
[2021-12-21] MEDS: Vancomycin 1 GM in Premix Bag 1 BAG IVPB SCH ×2 (01:05→13:29)
[2021-12-21] MEDS: Metoclopramide HCl 10 MG TAB PER TUBE SCH ×4 (04:00→20:01)
[2021-12-21] MEDS: Sodium Chloride 0.9% 1,000 ML IV SCH (07:12)
[2021-12-21] MEDS: Polyethylene Glycol 3350 17 GM Packet PER TUBE SCH (09:05)
[2021-12-21] MEDS: Docusate Sodium 100 MG/10 ML UDCUP PER TUBE SCH ×2 (09:05→20:01)
[2021-12-21] MEDS: Zinc Sulfate 220 MG CAP PER TUBE SCH (09:05)
[2021-12-21] MEDS: Ascorbic Acid 500 mg Chewable Tablet PER TUBE SCH (09:05)
[2021-12-21] MEDS: Aspirin Chewable 81 MG TAB PER TUBE SCH (09:05)
[2021-12-21] MEDS: Apixaban 5 MG TAB PO SCH ×2 (09:05→20:01)
[2021-12-21] MEDS: Cholecalciferol (Vitamin D3) 400 UNITS TAB PER TUBE SCH (09:05)
[2021-12-21] MEDS: Dexamethasone 10 MG/ML VIAL SLOW IVP SCH (09:05)
[2021-12-21] MEDS: Atorvastatin Calcium 40 MG TAB PER TUBE SCH (20:01)
[2021-12-21] MEDS: HumaLOG 300 UNITS/3 ML VIAL SC PRN ×2 (20:02)
[2021-12-22] MEDS: Chlorhexidine Gluconate 15 ML UDCUP SSP SCH ×7 (00:40→20:11)
[2021-12-22] MEDS: Vancomycin 1 GM in Premix Bag 1 BAG IVPB SCH ×2 (00:41→13:35)
[2021-12-22] MEDS: Metoclopramide HCl 10 MG TAB PER TUBE SCH ×4 (02:01→20:10)
[2021-12-22] MEDS: HumaLOG 300 UNITS/3 ML VIAL SC PRN ×2 (05:09→16:53)
[2021-12-22] MEDS: Scopolamine 1.5 mg/72 hour Patch TOP SCH (08:25)
[2021-12-22] MEDS: Zinc Sulfate 220 MG CAP PER TUBE SCH (08:26)
[2021-12-22] MEDS: Cholecalciferol (Vitamin D3) 400 UNITS TAB PER TUBE SCH (08:26)
[2021-12-22] MEDS: Apixaban 5 MG TAB PO SCH ×2 (08:26→20:10)
[2021-12-22] MEDS: Ascorbic Acid 500 mg Chewable Tablet PER TUBE SCH (08:27)
[2021-12-22] MEDS: Aspirin Chewable 81 MG TAB PER TUBE SCH (08:27)
[2021-12-22] MEDS: Dexamethasone 10 MG/ML VIAL SLOW IVP SCH (08:28)
[2021-12-22] MEDS: Docusate Sodium 100 MG/10 ML UDCUP PER TUBE SCH ×2 (08:29→20:10)
[2021-12-22] MEDS: Polyethylene Glycol 3350 17 GM Packet PER TUBE SCH (13:34)
[2021-12-22] MEDS: Atorvastatin Calcium 40 MG TAB PER TUBE SCH (20:10)
[2021-12-23] MEDS: Chlorhexidine Gluconate 15 ML UDCUP SSP SCH ×6 (01:46→19:30)
[2021-12-23] MEDS: Vancomycin 1 GM in Premix Bag 1 BAG IVPB SCH (01:46)
[2021-12-23] MEDS: Metoclopramide HCl 10 MG TAB PER TUBE SCH ×4 (02:53→20:20)
[2021-12-23] MEDS: Zinc Sulfate 220 MG CAP PER TUBE SCH (10:06)
[2021-12-23] MEDS: Apixaban 5 MG TAB PO SCH ×2 (10:06→20:20)
[2021-12-23] MEDS: Cholecalciferol (Vitamin D3) 400 UNITS TAB PER TUBE SCH (10:06)
[2021-12-23] MEDS: Ascorbic Acid 500 mg Chewable Tablet PER TUBE SCH (10:06)
[2021-12-23] MEDS: Aspirin Chewable 81 MG TAB PER TUBE SCH (10:07)
[2021-12-23] MEDS: Dexamethasone 10 MG/ML VIAL SLOW IVP SCH (10:07)
[2021-12-23] MEDS: Docusate Sodium 100 MG/10 ML UDCUP PER TUBE SCH ×2 (10:07→20:19)
[2021-12-23] MEDS: Polyethylene Glycol 3350 17 GM Packet PER TUBE SCH (10:09)
[2021-12-23] MEDS: HumaLOG 300 UNITS/3 ML VIAL SC PRN (16:25)
[2021-12-23] MEDS: Atorvastatin Calcium 40 MG TAB PER TUBE SCH (20:20)
[2021-12-24] MEDS: Chlorhexidine Gluconate 15 ML UDCUP SSP SCH ×6 (00:01→20:05)
[2021-12-24] MEDS: Metoclopramide HCl 10 MG TAB PER TUBE SCH ×4 (02:51→20:05)
[2021-12-24] MEDS: Ascorbic Acid 500 mg Chewable Tablet PER TUBE SCH (10:33)
[2021-12-24] MEDS: Zinc Sulfate 220 MG CAP PER TUBE SCH (10:34)
[2021-12-24] MEDS: Cholecalciferol (Vitamin D3) 400 UNITS TAB PER TUBE SCH (10:34)
[2021-12-24] MEDS: Aspirin Chewable 81 MG TAB PER TUBE SCH (10:34)
[2021-12-24] MEDS: Apixaban 5 MG TAB PO SCH ×2 (10:35→20:05)
[2021-12-24] MEDS: Polyethylene Glycol 3350 17 GM Packet PER TUBE SCH (10:35)
[2021-12-24] MEDS: Docusate Sodium 100 MG/10 ML UDCUP PER TUBE SCH ×2 (10:35→20:05)
[2021-12-24] MEDS: Dexamethasone 10 MG/ML VIAL SLOW IVP SCH (10:36)
[2021-12-24] MEDS: HumaLOG 300 UNITS/3 ML VIAL SC PRN (17:31)
[2021-12-24] MEDS: Atorvastatin Calcium 40 MG TAB PER TUBE SCH (20:05)
[2021-12-25] MEDS: Chlorhexidine Gluconate 15 ML UDCUP SSP SCH ×6 (00:01→21:21)
[2021-12-25] MEDS: Metoclopramide HCl 10 MG TAB PER TUBE SCH ×4 (02:27→21:29)
[2021-12-25] MEDS: Cholecalciferol (Vitamin D3) 400 UNITS TAB PER TUBE SCH (08:59)
[2021-12-25] MEDS: Apixaban 5 MG TAB PO SCH ×2 (08:59→21:21)
[2021-12-25] MEDS: Dexamethasone 10 MG/ML VIAL SLOW IVP SCH (08:59)
[2021-12-25] MEDS: Ascorbic Acid 500 mg Chewable Tablet PER TUBE SCH (08:59)
[2021-12-25] MEDS: Zinc Sulfate 220 MG CAP PER TUBE SCH (09:00)
[2021-12-25] MEDS: Aspirin Chewable 81 MG TAB PER TUBE SCH (09:00)
[2021-12-25] MEDS: Docusate Sodium 100 MG/10 ML UDCUP PER TUBE SCH ×2 (09:02→21:22)
[2021-12-25] MEDS: Polyethylene Glycol 3350 17 GM Packet PER TUBE SCH (09:02)
[2021-12-25 10:17] LABS: #Lymphocytes 1.2 thou/uL (1.20-3.40); #Monocytes 0.3 thou/uL (0.11-0.59); #Neutrophils 6.7 thou/uL (1.40-6.50); %Eosinophils 0.1 % (0.0-10.0); %Lymphocytes 14.6 % (21.0-51.0); %Monocytes 4.2 % (0.0-10.0); %Neutrophils 81.1 % (42.0-75.0); Hemoglobin 11.5 g/dL (14.0-18.0); Mean Corpuscular HGB CONC 34.8 g/dL (32.0-36.0); Mean Corpuscular Hemoglobin 33.8 pg (27.0-31.0); Mean Corpuscular Volume 97.1 fL (78.0-98.0); Mean Platelet Volume 7.7 fL (7.4-10.4); Platelet Count 184 thou/uL (130-400); RBC Distribution Width 12.6 % (11.5-14.5); White Blood Cell (WBC) Count 8.2 thou/uL (4.8-10.8)
[2021-12-25 10:34] LABS: ALT (SGPT) 35 U/L (8-55); AST (SGOT) 34 U/L (5-34); Albumin 2.7 g/dL (3.4-4.8); Alkaline Phosphatase 91 U/L (40-110); Anion Gap 11 mmol/L (10-20); BUN (Urea Nitrogen) 25 mg/dL (8.4-25.7); Bilirubin, Total 0.8 mg/dL (0.2-1.2); CRP (Inflammatory) 7.87 mg/dL (= or < 0.5); Calc. Creatinine Clearance 121 mL/min (70-130); Calcium 8.4 mg/dL (7.8-10.44); Carbon Dioxide 25 mmol/L (23-31); Chloride 100 mmol/L (98-107); Globulin 3.4 g/dL (2.4-3.5); Glucose 117 mg/dL (83-110); Potassium 4.2 mmol/L (3.5-5.1); Protein, Total 6.1 g/dL (5.8-8.1); Sodium 132 mmol/L (136-145)
[2021-12-25] MEDS: Scopolamine 1.5 mg/72 hour Patch TOP SCH (11:44)
[2021-12-25] MEDS: Atorvastatin Calcium 40 MG TAB PER TUBE SCH (21:21)
[2021-12-26] MEDS: Chlorhexidine Gluconate 15 ML UDCUP SSP SCH ×6 (02:17→21:08)
[2021-12-26] MEDS: Metoclopramide HCl 10 MG TAB PER TUBE SCH ×4 (02:17→21:08)
[2021-12-26] MEDS: Polyethylene Glycol 3350 17 GM Packet PER TUBE SCH (07:09)
[2021-12-26] MEDS: Docusate Sodium 100 MG/10 ML UDCUP PER TUBE SCH ×2 (07:09→21:15)
[2021-12-26] MEDS: Zinc Sulfate 220 MG CAP PER TUBE SCH (08:08)
[2021-12-26] MEDS: Aspirin Chewable 81 MG TAB PER TUBE SCH (08:08)
[2021-12-26] MEDS: Ascorbic Acid 500 mg Chewable Tablet PER TUBE SCH (08:08)
[2021-12-26] MEDS: Cholecalciferol (Vitamin D3) 400 UNITS TAB PER TUBE SCH (08:08)
[2021-12-26] MEDS: Apixaban 5 MG TAB PO SCH ×2 (08:08→21:08)
[2021-12-26] MEDS: Dexamethasone 10 MG/ML VIAL SLOW IVP SCH (08:09)
[2021-12-26] MEDS: Atorvastatin Calcium 40 MG TAB PER TUBE SCH (21:08)
[2021-12-26] MEDS: HumaLOG 300 UNITS/3 ML VIAL SC PRN (21:10)
[2021-12-27] MEDS: Chlorhexidine Gluconate 15 ML UDCUP SSP SCH ×3 (02:05→09:47)
[2021-12-27] MEDS: Metoclopramide HCl 10 MG TAB PER TUBE SCH ×2 (02:06→09:47)
[2021-12-27 08:56] VITALS: BP 117/69; TEMP 98
[2021-12-27] MEDS: Apixaban 5 MG TAB PO SCH (09:39)
[2021-12-27] MEDS: Cholecalciferol (Vitamin D3) 400 UNITS TAB PER TUBE SCH (09:39)
[2021-12-27] MEDS: Aspirin Chewable 81 MG TAB PER TUBE SCH (09:40)
[2021-12-27] MEDS: Ascorbic Acid 500 mg Chewable Tablet PER TUBE SCH (09:40)
[2021-12-27] MEDS: Zinc Sulfate 220 MG CAP PER TUBE SCH (09:40)
[2021-12-27] MEDS: Dexamethasone 10 MG/ML VIAL SLOW IVP SCH (09:41)
[2021-12-27] MEDS: Docusate Sodium 100 MG/10 ML UDCUP PER TUBE SCH (09:47)
[2021-12-27] MEDS: Polyethylene Glycol 3350 17 GM Packet PER TUBE SCH (09:48)
== END 2021-12-27 11:03 | DRG 871 ==
LOC: ERS 14:40 → T4-B 18:26
PROVIDERS: ADMIT Family Medicine; ATTEND Internal Medicine
PROC: 8E0ZXY6 Isolation (ICD-10-PCS; principal; 2021-12-16)
DX: A41.1 Sepsis due to other specified staphylococcus (principal); U07.1 COVID-19; G82.50 Quadriplegia, unspecified; J96.01 Acute respiratory failure with hypoxia; E78.5 Hyperlipidemia, unspecified; I10 Essential (primary) hypertension; R65.20 Severe sepsis without septic shock; I48.0 Paroxysmal atrial fibrillation; I69.320 Aphasia following cerebral infarction; Z93.1 Gastrostomy status; Z79.899 Other long term (current) drug therapy; Z79.01 Long term (current) use of anticoagulants; Z79.82 Long term (current) use of aspirin; Z90.79 Acquired absence of other genital organ(s)
CPT/HCPCS: 36415; 36416; 71045; 80048; 80053; 80202; 81003; 82728; 83605; 84145; 85025; 85379; 85610; 85730; 86140; 87040; 87086; 87149; 93005; 94760; 96365; 96375; J0692; J1100; J1815; J1940; J1956; J3370; J3490; J7050; U0002

== ENCOUNTER 2022-01-22 15:14 | Inpatient (IN) | payer MEDICARE, OTHER ==
[~2022-01-22 15:14] MED LIST changes: +FLU VACC QS2021-22(65YR UP)/PF 240 MCG/0.7 ML SYRINGE IM ONE
[2022-01-22] MEDS ORDERED: Cefepime 2 GM VIAL ONE (16:24)
[2022-01-22 16:27] LABS: #Lymphocytes 0.8 thou/uL (1.20-3.40); #Monocytes 0.3 thou/uL (0.11-0.59); #Neutrophils 12.5 thou/uL (1.40-6.50); %Basophils 0.1 % (0.0-1.0); %Eosinophils 0.1 % (0.0-10.0); %Lymphocytes 5.9 % (21.0-51.0); %Monocytes 2.5 % (0.0-10.0); %Neutrophils 91.5 % (42.0-75.0); Hemoglobin 13.9 g/dL (14.0-18.0); Mean Corpuscular HGB CONC 33.2 g/dL (32.0-36.0); Mean Corpuscular Hemoglobin 31.3 pg (27.0-31.0); Mean Corpuscular Volume 94.3 fL (78.0-98.0); Mean Platelet Volume 8.5 fL (7.4-10.4); Platelet Count 236 thou/uL (130-400); RBC Distribution Width 13.6 % (11.5-14.5); Red Blood Cell (RBC) Count 4.45 mill/uL (4.70-6.10); White Blood Cell (WBC) Count 13.6 thou/uL (4.8-10.8)
[2022-01-22 16:51] LABS: ALT (SGPT) 19 U/L (8-55); AST (SGOT) 19 U/L (5-34); Albumin 3.4 g/dL (3.4-4.8); Alkaline Phosphatase 110 U/L (40-110); Anion Gap 18 mmol/L (10-20); BUN (Urea Nitrogen) 29 mg/dL (8.4-25.7); Bilirubin, Total 1.5 mg/dL (0.2-1.2); CK (CPK) 77 U/L (30-200); Calc. Creatinine Clearance 0 mL/min (70-130); Calcium 8.8 mg/dL (7.8-10.44); Carbon Dioxide 23 mmol/L (23-31); Chloride 100 mmol/L (98-107); Globulin 3.9 g/dL (2.4-3.5); Glucose 178 mg/dL (83-110); Lipase 20 U/L (8-78); Potassium 4.3 mmol/L (3.5-5.1); Protein, Total 7.3 g/dL (5.8-8.1); Sodium 137 mmol/L (136-145)
[2022-01-22 17:35] LABS: Bilirubin Negative (Negative); Blood, Urine Negative (Negative); Glucose, Urine (Dipstick) Normal (Negative); Ketone, Urine Negative (Negative); Leukocyte Negative Leu/uL (Negative); Nitrite Negative (Negative); Protein, Urine (Dipstick) 50 mg/dL (Neg-Trace); RBC/HPF None Seen HPF (0-3); Specific Gravity, Urine 1.022 (1.002-1.036); Squamous Epithelial None Seen HPF (0-3); WBC/HPF None Seen HPF (0-3)
[2022-01-22 17:37] LABS: Clarity Turbid (Clear)
[2022-01-22 17:38] LABS: Bacteria/HPF 4+ HPF (None Seen); Calcium Oxalate Crystals 1+ HPF (None Seen)
[2022-01-22] MEDS ORDERED: Ketorolac Tromethamine 30 MG/ML VIAL ONE (18:41)
[2022-01-22] MEDS ORDERED: cefTRIAXone\\ROCEPHIN 2 GM VIAL ONE (18:41)
[2022-01-22] MEDS ORDERED: Acetaminophen 325 MG TAB PO PRN (19:23)
[2022-01-22] MEDS ORDERED: Ondansetron PF 4 MG/2 ML Vial IVP PRN (19:31)
[2022-01-22 20:03] LABS: Lactic Acid 2.3 mmol/L (0.5-2.2)
[2022-01-22 21:55] VITALS: BMI 25.9
[2022-01-22] MEDS: Sodium Chloride 0.9% 1,000 ML IV SCH (23:45)
[2022-01-23] MEDS ORDERED: Acetaminophen 325 MG TAB PO PRN (04:55)
[2022-01-23] MEDS ORDERED: Ondansetron ODT 4 MG TAB PO PRN (04:55)
[2022-01-23] MEDS ORDERED: Ondansetron PF 4 MG/2 ML Vial IVP PRN (04:55)
[2022-01-23] MEDS ORDERED: Doxycycline 100 MG in Syringe 0 ML IVPB SCH (04:55)
[2022-01-23] MEDS ORDERED: Acetaminophen 650 MG Suppository PR PRN (04:55)
[2022-01-23] MEDS ORDERED: Metoclopramide 10 MG/10 ML UDCUP PER TUBE PRN (05:09)
[2022-01-23] MEDS: Cefepime 2 GM in Sodium Chloride 0.9% 100 ML IVPB SCH ×2 (05:20→20:18)
[2022-01-23 06:28] LABS: Lactic Acid 1.1 mmol/L (0.5-2.2)
[2022-01-23] MEDS: Doxycycline 100 MG in Sodium Chloride 0.9% 100 ML IVPB SCH ×2 (06:32→20:18)
[2022-01-23 06:38] LABS: #Lymphocytes 0.9 thou/uL (1.20-3.40); #Monocytes 0.7 thou/uL (0.11-0.59); #Neutrophils 8.1 thou/uL (1.40-6.50); %Basophils 0.1 % (0.0-1.0); %Eosinophils 0.2 % (0.0-10.0); %Lymphocytes 9.4 % (21.0-51.0); %Monocytes 7.4 % (0.0-10.0); %Neutrophils 82.8 % (42.0-75.0); Hemoglobin 10.2 g/dL (14.0-18.0); Mean Corpuscular HGB CONC 34.9 g/dL (32.0-36.0); Mean Corpuscular Hemoglobin 33.2 pg (27.0-31.0); Mean Platelet Volume 8.9 fL (7.4-10.4); Platelet Count 176 thou/uL (130-400); RBC Distribution Width 13.4 % (11.5-14.5); Red Blood Cell (RBC) Count 3.08 mill/uL (4.70-6.10); White Blood Cell (WBC) Count 9.7 thou/uL (4.8-10.8)
[2022-01-23 06:54] LABS: Anion Gap 13 mmol/L (10-20); BUN (Urea Nitrogen) 32 mg/dL (8.4-25.7); Calc. Creatinine Clearance 113 mL/min (70-130); Calcium 8.6 mg/dL (7.8-10.44); Carbon Dioxide 23 mmol/L (23-31); Chloride 106 mmol/L (98-107); Glucose 115 mg/dL (83-110); Potassium 3.5 mmol/L (3.5-5.1); Sodium 138 mmol/L (136-145)
[2022-01-23] MEDS ORDERED: Enoxaparin Sodium 40 MG/0.4 ML SYRINGE SC SCH (09:00)
[2022-01-23] MEDS: Apixaban 5 MG TAB PER TUBE SCH ×2 (10:00→20:19)
[2022-01-23] MEDS: Amlodipine 5 MG TAB PER TUBE SCH (10:03)
[2022-01-23] MEDS: Aspirin Chewable 81 MG TAB PER TUBE SCH (11:04)
[2022-01-23] MEDS ORDERED: VANCOMYCIN 1.75 GM/350 ML BAG 1.75 GM in Premix Bag 1 BAG IVPB SCH (11:45)
[2022-01-23] MEDS: Sodium Chloride 0.9% 1,000 ML IV SCH ×2 (12:00→20:20)
[2022-01-23 14:42] LABS: SARS-CoV-2 PCR by NAA DETECTED (NotDetected)
[2022-01-23] MEDS: Atorvastatin Calcium 40 MG TAB PER TUBE SCH (20:19)
[2022-01-23] MEDS ORDERED: Vancomycin HCl 1 GM in Sodium Chloride 0.9% 250 ML 250 ML IVPB SCH (21:00)
[2022-01-24] MEDS: Sodium Chloride 0.9% 1,000 ML IV SCH (02:43)
[2022-01-24] MEDS: Doxycycline 100 MG in Sodium Chloride 0.9% 100 ML IVPB SCH ×2 (05:41→20:22)
[2022-01-24] MEDS: Cefepime 2 GM in Sodium Chloride 0.9% 100 ML IVPB SCH ×2 (05:41→17:22)
[2022-01-24 06:52] LABS: #Eosinphils 0.1 thou/uL (0.0-0.7); #Lymphocytes 1.2 thou/uL (1.20-3.40); #Monocytes 0.4 thou/uL (0.11-0.59); #Neutrophils 3.8 thou/uL (1.40-6.50); %Basophils 0.1 % (0.0-1.0); %Eosinophils 1.1 % (0.0-10.0); %Lymphocytes 21.6 % (21.0-51.0); %Monocytes 7.7 % (0.0-10.0); %Neutrophils 69.5 % (42.0-75.0); Hemoglobin 9.5 g/dL (14.0-18.0); Mean Corpuscular HGB CONC 33.1 g/dL (32.0-36.0); Mean Corpuscular Hemoglobin 31.1 pg (27.0-31.0); Mean Corpuscular Volume 93.9 fL (78.0-98.0); Mean Platelet Volume 8.6 fL (7.4-10.4); Platelet Count 168 thou/uL (130-400); RBC Distribution Width 13.4 % (11.5-14.5); Red Blood Cell (RBC) Count 3.07 mill/uL (4.70-6.10); White Blood Cell (WBC) Count 5.4 thou/uL (4.8-10.8)
[2022-01-24 07:09] LABS: Anion Gap 11 mmol/L (10-20); BUN (Urea Nitrogen) 30 mg/dL (8.4-25.7); Calc. Creatinine Clearance 119 mL/min (70-130); Calcium 8.1 mg/dL (7.8-10.44); Carbon Dioxide 22 mmol/L (23-31); Chloride 112 mmol/L (98-107); Glucose 235 mg/dL (83-110); Sodium 142 mmol/L (136-145)
[2022-01-24] MEDS: Aspirin Chewable 81 MG TAB PER TUBE SCH (09:13)
[2022-01-24] MEDS: Apixaban 5 MG TAB PER TUBE SCH ×2 (09:13→20:20)
[2022-01-24] MEDS: Amlodipine 5 MG TAB PER TUBE SCH (09:13)
[2022-01-24] MEDS ORDERED: GUAIFENESIN SF SOLN 200 MG/10 ML UDCUP PER TUBE SCH (09:15)
[2022-01-24] MEDS ORDERED: Vancomycin HCl 1.25 GM, Admixture Fee 1 EACH in Sodium Chloride 0.9% 250 ML 250 ML IVPB SCH (12:00)
[2022-01-24] MEDS: Lansoprazole 3 MG/ML ORAL SUSPENSION PER TUBE SCH (14:15)
[2022-01-24] MEDS: GUAIFENESIN SF SOLN 200 MG/10 ML UDCUP PER TUBE SCH ×2 (17:00→20:21)
[2022-01-24] MEDS: Atorvastatin Calcium 40 MG TAB PER TUBE SCH (20:20)
[2022-01-25] MEDS: Cefepime 2 GM in Sodium Chloride 0.9% 100 ML IVPB SCH ×2 (05:33→17:32)
[2022-01-25] MEDS: GUAIFENESIN SF SOLN 200 MG/10 ML UDCUP PER TUBE SCH ×4 (05:33→21:18)
[2022-01-25 06:59] LABS: #Eosinphils 0.1 thou/uL (0.0-0.7); #Lymphocytes 1.1 thou/uL (1.20-3.40); #Monocytes 0.4 thou/uL (0.11-0.59); #Neutrophils 4.4 thou/uL (1.40-6.50); %Basophils 0.1 % (0.0-1.0); %Eosinophils 1.6 % (0.0-10.0); %Lymphocytes 18.2 % (21.0-51.0); %Monocytes 6.8 % (0.0-10.0); %Neutrophils 73.4 % (42.0-75.0); Hemoglobin 10.1 g/dL (14.0-18.0); Mean Corpuscular HGB CONC 34.7 g/dL (32.0-36.0); Mean Corpuscular Hemoglobin 32.5 pg (27.0-31.0); Mean Corpuscular Volume 93.5 fL (78.0-98.0); Mean Platelet Volume 8.5 fL (7.4-10.4); Platelet Count 178 thou/uL (130-400); RBC Distribution Width 13.2 % (11.5-14.5)
[2022-01-25] MEDS: Doxycycline 100 MG in Sodium Chloride 0.9% 100 ML IVPB SCH ×2 (07:00→18:02)
[2022-01-25 07:19] LABS: Anion Gap 10 mmol/L (10-20); BUN (Urea Nitrogen) 25 mg/dL (8.4-25.7); Calc. Creatinine Clearance 127 mL/min (70-130); Calcium 8.1 mg/dL (7.8-10.44); Carbon Dioxide 24 mmol/L (23-31); Chloride 111 mmol/L (98-107); Glucose 249 mg/dL (83-110); Potassium 3.1 mmol/L (3.5-5.1); Sodium 142 mmol/L (136-145)
[2022-01-25] MEDS: Apixaban 5 MG TAB PER TUBE SCH ×2 (09:00→21:17)
[2022-01-25] MEDS: Amlodipine 5 MG TAB PER TUBE SCH (09:12)
[2022-01-25] MEDS: Aspirin Chewable 81 MG TAB PER TUBE SCH (09:14)
[2022-01-25] MEDS: Lansoprazole 3 MG/ML ORAL SUSPENSION PER TUBE SCH (09:15)
[2022-01-25] MEDS: Atorvastatin Calcium 40 MG TAB PER TUBE SCH (21:17)
[2022-01-26] MEDS: GUAIFENESIN SF SOLN 200 MG/10 ML UDCUP PER TUBE SCH ×3 (04:29→14:53)
[2022-01-26] MEDS: Cefepime 2 GM in Sodium Chloride 0.9% 100 ML IVPB SCH (05:14)
[2022-01-26] MEDS: Doxycycline 100 MG in Sodium Chloride 0.9% 100 ML IVPB SCH (05:52)
[2022-01-26 07:17] LABS: Hemoglobin A1c 6.2 % (4.0-6.0)
[2022-01-26] MEDS: Apixaban 5 MG TAB PER TUBE SCH (08:49)
[2022-01-26] MEDS: Aspirin Chewable 81 MG TAB PER TUBE SCH (08:49)
[2022-01-26] MEDS: Amlodipine 5 MG TAB PER TUBE SCH (08:49)
[2022-01-26] MEDS: Lansoprazole 3 MG/ML ORAL SUSPENSION PER TUBE SCH (10:00)
[2022-01-26 18:47] VITALS: BP 130/84; TEMP 98.9
== END 2022-01-26 17:44 | DRG 871 ==
LOC: ERS 15:14 → T4-B 18:26
PROVIDERS: ADMIT Internal Medicine; ATTEND Internal Medicine
PROC: 8E0ZXY6 Isolation (ICD-10-PCS; principal; 2022-01-22)
PROC: 3E03329 Introduction of Other Anti-infective into Peripheral Vein, Percutaneous Approach (ICD-10-PCS; 2022-01-22)
DX: A41.89 Other specified sepsis (principal); U07.1 COVID-19; L89.154 Pressure ulcer of sacral region, stage 4; J12.82 Pneumonia due to coronavirus disease 2019; G82.50 Quadriplegia, unspecified; G93.40 Encephalopathy, unspecified; I48.0 Paroxysmal atrial fibrillation; R13.12 Dysphagia, oropharyngeal phase; E78.5 Hyperlipidemia, unspecified; Z90.49 Acquired absence of other specified parts of digestive tract; Z86.711 Personal history of pulmonary embolism; Z93.1 Gastrostomy status; Z79.82 Long term (current) use of aspirin; Z79.899 Other long term (current) drug therapy; Z79.01 Long term (current) use of anticoagulants; I69.365 Other paralytic syndrome following cerebral infarction, bilateral; I69.391 Dysphagia following cerebral infarction; I69.320 Aphasia following cerebral infarction
CPT/HCPCS: 36415; 51702; 71045; 74177; 80048; 80053; 81003; 81015; 82550; 83036; 83605; 83690; 83880; 84145; 84484; 85025; 87040; 87076; 87077; 87149; 93005; 94640; 96365; 96367; 96375; J0692; J0696; J1885; J3370; J3490; J7050; J7620; Q9967; U0003; U0005